=== PATIENT | female | born 1950 | race Caucasian/White ===

== ENCOUNTER → 2020-04-09 14:03 | Outpatient (BNVA) | payer MEDICARE, SELFPAY | PROVIDERS: PCP Nurse Practitioner; Visit Provider Nurse Practitioner | DX: I10 Essential (primary) hypertension (principal); E55.9 Vitamin D deficiency, unspecified; E78.2 Mixed hyperlipidemia; M19.049 Primary osteoarthritis, unspecified hand | CPT/HCPCS: 80053; 80061; 82306; 82607; 84443; 85025 ==

== ENCOUNTER → 2020-06-25 11:36 | Outpatient (BNVA) | payer MEDICARE, SELFPAY | PROVIDERS: PCP Nurse Practitioner; Visit Provider Nurse Practitioner | DX: E55.9 Vitamin D deficiency, unspecified (principal); I10 Essential (primary) hypertension; M19.049 Primary osteoarthritis, unspecified hand; B37.9 Candidiasis, unspecified; E78.2 Mixed hyperlipidemia | CPT/HCPCS: 82306 ==

== ENCOUNTER → 2020-12-17 10:52 | Outpatient (BNVA) | payer MEDICARE, MEDICAID, SELFPAY | PROVIDERS: PCP Nurse Practitioner; Visit Provider Nurse Practitioner | DX: I10 Essential (primary) hypertension (principal); M19.049 Primary osteoarthritis, unspecified hand; E78.2 Mixed hyperlipidemia; E55.9 Vitamin D deficiency, unspecified | CPT/HCPCS: 80053; 80061; 82306; 85025 ==

== ENCOUNTER → 2021-04-25 11:09 | Outpatient (BNVA) | payer MEDICARE, MEDICAID, SELFPAY | PROVIDERS: PCP Nurse Practitioner; Visit Provider Nurse Practitioner | DX: I10 Essential (primary) hypertension (principal); R32 Unspecified urinary incontinence | CPT/HCPCS: 81003 ==

== ENCOUNTER → 2021-05-13 13:25 | Outpatient (BNVA) | payer MEDICARE, MEDICAID, SELFPAY | PROVIDERS: PCP Nurse Practitioner; Visit Provider Nurse Practitioner | DX: I10 Essential (primary) hypertension (principal); Z79.899 Other long term (current) drug therapy | CPT/HCPCS: 80053; 80061; 81000 ==

== ENCOUNTER 2021-05-21 13:28 | Outpatient (CLI) | payer MEDICARE, MEDICAID, SELFPAY ==
--- NOTE | 2021-05-21 14:15 | XR_ITS ---
WS: [id number] DEXA (DUAL ENERGY X-RAY ABSORPTIOMETRY) Bone mineral density was performed using a Cellrox machine. HISTORY: Z78.0 - Asymptomatic menopausal state COMPARISON: None available. Lumbar spine BMD (L1-L4): 0.943 g/cm2 T score: -2.0 Z score: -1.4 Total hip BMD: Left: 0.950 g/cm2. T score: -0.5 Z score: 0.3 Right: 0.891 g/cm2. T score: -0.9 Z score: -0.2 10 year probability of a major osteoporotic fracture is 15%. XR/XR DEXA axial skeleton* [id number] IMPRESSION: OSTEOPENIA based upon the WHO classification for females.
== END 2021-05-21 13:29 | disposition home or self-care (01) ==
LOC: RAD 13:32
PROVIDERS: PCP Nurse Practitioner; Visit Provider Nurse Practitioner
DX: Z78.0 Asymptomatic menopausal state (principal); M85.80 Other specified disorders of bone density and structure, unspecified site
CPT/HCPCS: 77080

== ENCOUNTER 2021-07-01 14:44 | Outpatient (CLI) | payer MEDICARE, MEDICAID, SELFPAY ==
--- NOTE | 2021-07-01 14:53 | MM_ITS ---
WS: [id number] BILATERAL 3D TOMOSYNTHESIS DIGITAL SCREENING MAMMOGRAPHY WITH CAD CLINICAL INFORMATION: SCREENING COMPARISON: None. TECHNIQUE: Bilateral CC and MLO views. FINDINGS: The breasts are composed of heterogeneous fibroglandular density tissue, which can limit the detectio n of small underlying mass lesions. 10 mm asymmetric density along the posterior nipple line RIGHT br east. Nodular subareolar RIGHT breast tissue. Recommend RIGHT breast spot compression views and ultra sound for further evaluation. Punctate and lucent centered calcifications. LEFT breast is unremarkable. MM/[place] [id number] IMPRESSION: BI-RADS: 0-Incomplete: Need additional imaging evaluation FOLLOW UP: Need Additional Imaging Recommend RIGHT breast diagnostic mammography with spot compression views and u ltrasound.
== END 2021-07-01 14:45 | disposition home or self-care (01) ==
LOC: RAD 14:48
PROVIDERS: PCP Nurse Practitioner; Visit Provider Nurse Practitioner
DX: Z12.31 Encounter for screening mammogram for malignant neoplasm of breast (principal); R92.2 Inconclusive mammogram
CPT/HCPCS: 77063; 77067

== ENCOUNTER → 2021-08-25 09:59 | Outpatient (BNVA) | payer MEDICARE, MEDICAID, SELFPAY | PROVIDERS: PCP Nurse Practitioner; Visit Provider Nurse Practitioner | DX: I10 Essential (primary) hypertension (principal); M19.049 Primary osteoarthritis, unspecified hand; E78.2 Mixed hyperlipidemia; E55.9 Vitamin D deficiency, unspecified; B37.9 Candidiasis, unspecified; M25.512 Pain in left shoulder | CPT/HCPCS: 73030; 80053; 80061; 82306; 84443 ==

== ENCOUNTER → 2021-09-26 11:07 | Outpatient (BNVA) | payer MEDICARE, MEDICAID, SELFPAY | PROVIDERS: PCP Nurse Practitioner; Visit Provider Nurse Practitioner | DX: N39.46 Mixed incontinence (principal) | CPT/HCPCS: 81000 ==

== ENCOUNTER 2021-10-28 10:19 | Outpatient (CLI) | payer MEDICARE, MEDICAID, SELFPAY ==
--- NOTE | 2021-10-28 10:24 | MM_ITS ---
WS: [id number] RIGHT 3D TOMOSYNTHESIS DIGITAL MAMMOGRAPHY WITH CAD CLINICAL INFORMATION: R92.8 - Other abnormal and inconclusive findings on diagn... COMPARISON: July 01, 2021 TECHNIQUE: 3 views of the right breast were obtained. FINDINGS: The right breast is composed of heterogeneous fibroglandular density tissue, which can limit the dete ction of small underlying mass lesions. Punctate and lucent centered calcifications. Stable 10 mm ovo id nodular density along the RIGHT posterior nipple line. Stable subareolar nodular RIGHT breast tiss ue. Ultrasound described below. ULTRASOUND BREAST RIGHT TECHNIQUE: Ultrasound right breast focused area of concern. CLINICAL INFORMATION: R92.8 - Other abnormal and inconclusive findings on diagn... COMPARISON: None. FINDINGS: Ultrasound RIGHT breast 3 to 9:00 position and about the areola. Multiple dilated ducts visualized co mpatible with ductal ectasia. Dense breast tissue. A few incidental cysts at the 3:00 position measur ing 4 x 2 x 4 mm and at the 5:00 position measuring 6 x 5 x 5 mm. Additional simple cyst at the 6:00 position measuring 3 x 2 x 2.5 mm. Additional simple cyst at the 11:00 position measuring 8.5 x 4.3 x 10.0 mm No suspicious cystic or solid lesions. No lesions to target for biopsy. Recommend return to annual sc reening mammography. MM/[place] [id number] IMPRESSION: BI-RADS: 2-Benign FOLLOW UP: 1 Year Follow-up Recommend return to annual screening mammography.
== END 2021-10-28 10:20 | disposition home or self-care (01) ==
LOC: RAD 10:19
PROVIDERS: PCP Nurse Practitioner; Visit Provider Nurse Practitioner
DX: R92.8 Other abnormal and inconclusive findings on diagnostic imaging of breast (principal)
CPT/HCPCS: 76642; 77061

== ENCOUNTER → 2022-02-10 10:59 | Outpatient (BNVA) | payer MEDICARE, MEDICAID, SELFPAY | PROVIDERS: PCP Nurse Practitioner; Visit Provider Nurse Practitioner | DX: I10 Essential (primary) hypertension (principal); E55.9 Vitamin D deficiency, unspecified; M19.049 Primary osteoarthritis, unspecified hand; E78.2 Mixed hyperlipidemia; E66.9 Obesity, unspecified; F79 Unspecified intellectual disabilities | CPT/HCPCS: 80053; 80061 ==

== ENCOUNTER → 2022-02-16 10:43 | Outpatient (BNVA) | payer MEDICARE, MEDICAID, SELFPAY | PROVIDERS: PCP Nurse Practitioner; Visit Provider Nurse Practitioner | DX: R73.9 Hyperglycemia, unspecified (principal) | CPT/HCPCS: 83036 ==

== ENCOUNTER → 2022-06-08 09:42 | Outpatient (BNVA) | payer MEDICARE, MEDICAID, SELFPAY | PROVIDERS: PCP Nurse Practitioner; Visit Provider Nurse Practitioner | DX: I10 Essential (primary) hypertension (principal); E55.9 Vitamin D deficiency, unspecified; M19.049 Primary osteoarthritis, unspecified hand; E11.65 Type 2 diabetes mellitus with hyperglycemia; E78.2 Mixed hyperlipidemia; E66.9 Obesity, unspecified; F79 Unspecified intellectual disabilities | CPT/HCPCS: 80053; 80061; 82043; 82306; 83036; 84443 ==

== ENCOUNTER → 2022-08-24 09:57 | Outpatient (BNVA) | payer MEDICARE, MEDICAID, SELFPAY | PROVIDERS: PCP Nurse Practitioner; Visit Provider Nurse Practitioner | DX: E03.9 Hypothyroidism, unspecified (principal); E11.65 Type 2 diabetes mellitus with hyperglycemia; I10 Essential (primary) hypertension | CPT/HCPCS: 80053; 83036; 84443 ==

== ENCOUNTER 2022-09-02 09:19 | Outpatient (CLI) | payer MEDICARE, MEDICAID, SELFPAY ==
--- NOTE | 2022-09-02 09:27 | MM_ITS ---
WS: [id number] BILATERAL SCREENING DIGITAL TOMOSYNTHESIS MAMMOGRAM WITH CAD HISTORY: SCREENING COMPARISON: 10/28/2021, 07/01/2021 Bilateral CC and MLO views with tomosynthesis and synthetic mammography submitted. Computer aided det ection analyzed. Breast composition: The breasts are heterogeneously dense, which may obscure small masses. No suspici ous masses, microcalcifications or architectural distortion. Numerous benign bilateral calcifications . Multiple small masses scattered throughout the RIGHT breast were present on the prior examination a nd ultrasound demonstrated cysts. MM/[place] [id number] IMPRESSION: BI-RADS: 2-Benign FOLLOW UP: 1 Year Follow-up
== END 2022-09-02 09:20 | disposition home or self-care (01) ==
PROVIDERS: PCP Nurse Practitioner; Visit Provider Nurse Practitioner
DX: Z12.31 Encounter for screening mammogram for malignant neoplasm of breast (principal)
CPT/HCPCS: 77063; 77067

== ENCOUNTER → 2022-11-16 10:38 | Outpatient (BNVA) | payer MEDICARE, MEDICAID, SELFPAY | PROVIDERS: PCP Nurse Practitioner; Visit Provider Nurse Practitioner | DX: E03.9 Hypothyroidism, unspecified (principal); E11.65 Type 2 diabetes mellitus with hyperglycemia; E66.9 Obesity, unspecified; I10 Essential (primary) hypertension; M19.049 Primary osteoarthritis, unspecified hand; E78.2 Mixed hyperlipidemia; Z23 Encounter for immunization | CPT/HCPCS: 83036; 84443 ==

== ENCOUNTER → 2023-02-09 11:28 | Outpatient (BNVA) | payer MEDICARE, MEDICAID, SELFPAY | PROVIDERS: PCP Nurse Practitioner; Visit Provider Nurse Practitioner | DX: E11.65 Type 2 diabetes mellitus with hyperglycemia (principal); E66.9 Obesity, unspecified; I10 Essential (primary) hypertension; E55.9 Vitamin D deficiency, unspecified; M19.049 Primary osteoarthritis, unspecified hand; E03.9 Hypothyroidism, unspecified; E78.2 Mixed hyperlipidemia; E11.9 Type 2 diabetes mellitus without complications; Z79.899 Other long term (current) drug therapy | CPT/HCPCS: 80053; 80061; 82043; 82607; 83036; 84443 ==

== ENCOUNTER → 2023-02-24 09:50 | Outpatient (BNVA) | payer MEDICARE, MEDICAID, SELFPAY | PROVIDERS: PCP Nurse Practitioner; Visit Provider Nurse Practitioner | DX: I10 Essential (primary) hypertension (principal) | CPT/HCPCS: 80048 ==

== ENCOUNTER → 2023-08-03 11:54 | Outpatient (BNVA) | payer MEDICARE, MEDICAID, SELFPAY | PROVIDERS: PCP Nurse Practitioner; Visit Provider Nurse Practitioner | DX: E11.9 Type 2 diabetes mellitus without complications (principal); E11.65 Type 2 diabetes mellitus with hyperglycemia; H91.90 Unspecified hearing loss, unspecified ear | CPT/HCPCS: 80053; 80061; 81000; 82043; 82607; 83036 ==

== ENCOUNTER 2023-09-02 07:00 | Outpatient (CLI) | payer MEDICARE, MEDICAID, SELFPAY ==
--- NOTE | 2023-09-02 07:00 | US_ITS ---
WS: [id number] Complete ABDOMINAL ULTRASOUND HISTORY: R10.9 - Unspecified abdominal pain COMPARISON: None available. Liver: 15.7 cm in length. Normal size liver and echogenicity. No bile duct dilatation or mass. Portal Vein: Normal hepatopetal flow with monophasic waveform. Gallbladder: Well-distended gallbladder. There is at least 1 stone measuring 1.5 cm in the gallbladde r lumen. No wall thickening or pericholecystic fluid. CBD: 0.5 cm Pancreas: Normal size and echogenicity. Right kidney: 9.2 cm x 5.1 x 4.3 cm. Cortex:1.5 cm. Normal size and echogenicity. No hydronephrosis or mass. Left kidney: 10.3 cm x 5.3 cm x 5.2 cm. Cortex: 1.4 cm. Normal size and echogenicity. No hydronephrosis or mass. Spleen: 8.8 cm. Normal size and echogenicity. Aorta and IVC: Unremarkable abdominal aorta and IVC. US/US abdomen complete* [id number] Impression: 1. Cholelithiasis without acute cholecystitis. 2. No renal obstruction. 3. No bile duct dilatation.
== END 2023-09-02 07:01 | disposition home or self-care (01) ==
PROVIDERS: PCP Nurse Practitioner; Visit Provider Nurse Practitioner Family
DX: R10.9 Unspecified abdominal pain (principal); K80.20 Calculus of gallbladder without cholecystitis without obstruction
CPT/HCPCS: 73562; 76700; 80053; 82150; 83690; 85025

== ENCOUNTER 2023-09-07 13:10 | Emergency (ER) | payer MEDICARE, MEDICAID, SELFPAY ==
[2023-09-07 13:11] VITALS: BP 145/82; PULSE 75; RESP 16; TEMP 36.8; O2SAT 91
--- NOTE | 2023-09-07 13:23 | XRR_ITS ---
PROCEDURE INFORMATION: Exam: XR Left Shoulder Exam date and time: 09/07/2023 1:27 PM Age: 72 years old Clinical indication: Injury or trauma; Fall; Blunt trauma (contusions or hematomas); Shoulder; Left TECHNIQUE: Imaging protocol: Radiologic exam of the left shoulder. Views: 2 or more views. COMPARISON: CR XR shoulder LT min 2V* [id number] 08/25/2021 9:59 AM FINDINGS: Bones/joints: Comminuted displaced fracture of the proximal humerus Soft tissues: Normal. XR/XR shoulder LT min 2V* [id number] IMPRESSION: Comminuted displaced fracture proximal humerus
--- NOTE | 2023-09-07 13:27 | W.ED.EXTPRO ---
HPI - Extremity Problem General: Chief complaint: Extremity Injury, Upper Stated complaint: fall, shoulder pain Time Seen by Provider: 09/07/23 13:18 Source: patient Mode of arrival: ambulatory Limitations: no limitations History of Present Illness: 72-year-old female states that her dog pulled her over last night she states that she had landed on her left shoulder been having left shoulder pain since then. Patient denies any other injuries denies hitting her head denies any head or neck pain. She rates her shoulder pain a 6 out of 10 much worse with movement better with rest Associated symptoms: Deny chest pain, fever(s) or rash Review of Systems Const: Denies: fever(s), chills, body aches or change in appetite ENMT: Denies: throat pain or dental pain Card: Denies: chest pain Resp: Denies: dyspnea GI: Denies: abdominal pain, nausea, vomiting or diarrhea Musc: Reports: extremity pain; Denies: neck pain or back pain Skin/Breast: Denies: rash Neuro: Denies: headache(s) PFSH ED PFSH: Medical History Mental disability Colon cancer screening Cologuard negative 2021 Obesity (BMI 30-39.9) Vitamin D deficiency Arthritis of hand Osteoarthritis, hand Mixed hyperlipidemia Essential (primary) hypertension Environmental and seasonal allergies B12 deficiency Surgical History History of hysterectomy History of tonsillectomy History of tubal ligation Family History Sister Dementia Hypertension Mother Dementia Hypertension Family/Other Diabetes Brother Hypertension Father Hypertension Denies family history of Cancer Stroke Social History Smoking and tobacco/nicotine status: former use of tobacco/nicotine Second hand smoke exposure: No Alcohol intake: never Substance/Drug Use: never Adopted: No Caregiver/support person: Yes Lives independently: No Household members: family Housing: House Marital status: / Number of children: 3 service: No Current occupational status: retired Pets and animals: No Do you think of yourself as: Straight/Heterosexual Current gender identity: Female Physical Exam Const: COMMON NORMALS: no acute distress, patient oriented x3 and healthy appearing HENMT: COMMON NORMALS: normocephalic and atraumatic HEAD & SCALP: normocephalic and atraumatic Neck/C-Spine: COMMON NORMALS: full ROM and supple CERVICAL SPINE: No Cervical spine tenderness Chest: COMMONS NORMALS: normal inspection of the chest Resp: COMMON NORMALS: normal respiratory effort Cardio: COMMON NORMALS: regular rate, regular rhythm and No murmurs present (Cardio) RATE: regular rate RHYTHM: regular rhythm Extremity: NARRATIVE EXTREMITY EXAM: Tenderness over left shoulder distal pulses sensation intact Neuro: COMMON NORMALS: patient oriented x3, moves all extremities and no focal motor deficits Psych: COMMON NORMALS: mental status grossly normal, Normal thought process present and cooperative THOUGHT PROCESS: Normal thought process present Skin: COMMON NORMALS: no rashes or lesions noted and no wounds GENERAL SKIN EXAM: no rashes or lesions noted Course Vital Signs: Vital signs: Vital Signs Temperature 98.2 F 09/07/23 13:11 Pulse Rate 75 09/07/23 13:11 Respiratory Rate 16 09/07/23 13:11 Blood Pressure 145/82 09/07/23 13:11 Pulse Oximetry 91 09/07/23 13:11 Oxygen Delivery Me thod Room Air 09/07/23 13:11 MDM - Extremity (Nontraumatic) Medical Decision Making Patient presents here with proximal humerus fracture from a fall will place in a sling and get follow-up orthopedics no other injuries noted here Medical Records I reviewed the patient's medical records. XR interpretation done by ED provider, pending radiology final review ED provider radiology interpretation(s): X-ray left shoulder proximal humerus fracture Discharge Plan Discharge Patient Disposition: Home Clinical Impression: Fall Closed left humeral fracture Qualifiers: Encounter type: initial encounter Humerus Location: proximal Fracture alignment: nondisplaced Condition: Stable Prescriptions: New hydrocodone-acetaminophen 5-325 mg tablet 1 tab PO Q6H PRN (Reason: pain) Qty: 14 0RF No Action cyanocobalamin (vitamin B-12) 1,000 mcg tablet 1,000 mcg PO DAILY Hold Instructions: Vitamin B12 improved aspirin [Adult Aspirin Regimen] 81 mg tablet,delayed release (DR/EC) 81 mg PO DAILY (DME) T4528 T4528 Adult size pull-on xl See Rx Instructions .Route .MEDSUPPLY Qty: 90 12RF Rx Instructions: As directed acarbose 50 mg tablet 50 mg PO TID Qty: 270 1RF Rx Instructions: take before food atenolol 100 mg tablet 100 mg PO DAILY Qty: 90 1RF calcium carbonate-vitamin D3 [Os-Chirag 500 + D3] 500 mg-15 mcg (600 unit) tablet 1 tab PO .2 times day Qty: 180 1RF diclofenac sodium 1 % gel 2 g topical QID Qty: 100 2RF Hold Instructions: Lab level improved Rx Instructions: apply to single elbow, wrist or hand; for hand includes palm/fingers/back of hand hydrochlorothiazide 12.5 mg tablet 12.5 mg PO QAM Qty: 90 1RF levothyroxine [Levo-T] 25 mcg tablet 25 mcg PO DAILY Qty: 90 1RF lisinopril 40 mg tablet 40 mg PO DAILY Qty: 90 1RF metformin 500 mg tablet extended release 24 hr 1,000 mg PO DAILY Qty: 180 1RF rosuvastatin 10 mg tablet 10 mg PO .at bedtime Qty: 90 1RF verapamil 120 mg capsule,ext rel. pellets 24 hr 120 mg PO DAILY Qty: 90 1RF mupirocin 2 % ointment 1 applic topical BID 7 Days Qty: 22 0RF cholecalciferol (vitamin D3) 50 mcg (2,000 unit) capsule 50 mcg PO DAILY prednisone 20 mg tablet 20 mg PO BID Qty: 6 0RF nystatin 100,000 unit/gram powder 1 applic topical BID PRN (Reason: itching) Qty: 60 2RF Discharge Orders: Discharge ED (Routine); Ordered 09/07/23 Ordered By: Sb Young Referrals: Kathy Tijerina, LOGISTICS ANALYST-C [Primary Care Provider] - Nubia Ferreira MD [Physician] - 4-7 days Discharge Diet: Advance as tolerated Discharge Activity: Resume usual activity Patient Instructions: Arm Fracture in Adults (ED), Opioid Safety Coding Level of Care Code ED Deburrer Strip for Mil Falcon
[2023-09-07] MEDS: HYDROcodone-acetaminophen 5-325 mg Tablet 1 TAB PO (13:38)
[2023-09-07 14:09] VITALS: RESP 18
--- NOTE | 2023-09-07 14:11 | PC.NURSE ---
bug bugs found to be on patient. Clothing placed in plastic bags and [pt in paper scrubs. Charge notified and room closed down until cleaned.
--- NOTE | 2023-09-08 07:27 | DCPLANNER ---
Message sent to ortho for follow up on humerus fracture.
== END 2023-09-07 14:12 | disposition home or self-care (01) ==
PROVIDERS: Emergency Provider Emergency Medicine; PCP Nurse Practitioner
DX: S42.202A Unspecified fracture of upper end of left humerus, initial encounter for closed fracture (principal); Z79.82 Long term (current) use of aspirin; Z79.84 Long term (current) use of oral hypoglycemic drugs; Z87.891 Personal history of nicotine dependence; E78.2 Mixed hyperlipidemia; I10 Essential (primary) hypertension; W18.39XA Other fall on same level, initial encounter
CPT/HCPCS: 73030; 99283

== ENCOUNTER 2023-09-09 15:18 | Outpatient (CLI) | payer MEDICARE, MEDICAID, SELFPAY | END 2023-09-09 15:19 | disposition home or self-care (01) | LOC: SPT 15:19 | PROVIDERS: PCP Nurse Practitioner; Visit Provider Nurse Practitioner | DX: Z46.89 Encounter for fitting and adjustment of other specified devices (principal); S42.302D Unspecified fracture of shaft of humerus, left arm, subsequent encounter for fracture with routine healing; X58.XXXD Exposure to other specified factors, subsequent encounter | CPT/HCPCS: 23600; 97760; 99204; L3670 ==

== ENCOUNTER 2023-09-15 06:00 | Outpatient (RCR) | payer MEDICARE, MEDICAID, SELFPAY | END 2023-10-09 23:59 | disposition home or self-care (01) | LOC: APT 06:00 | PROVIDERS: PCP Nurse Practitioner; Visit Provider Nurse Practitioner | DX: M25.561 Pain in right knee (principal) | CPT/HCPCS: 97161 ==

== ENCOUNTER → 2023-10-13 09:01 | Outpatient (BNVA) | payer MEDICARE, MEDICAID, SELFPAY | PROVIDERS: PCP Nurse Practitioner; Visit Provider Nurse Practitioner | DX: S42.302A Unspecified fracture of shaft of humerus, left arm, initial encounter for closed fracture (principal); X58.XXXA Exposure to other specified factors, initial encounter | CPT/HCPCS: 73030; 99024 ==

== ENCOUNTER → 2023-11-15 10:17 | Outpatient (BNVA) | payer MEDICARE, MEDICAID, SELFPAY | PROVIDERS: PCP Nurse Practitioner; Visit Provider Nurse Practitioner | DX: S42.302D Unspecified fracture of shaft of humerus, left arm, subsequent encounter for fracture with routine healing (principal); X58.XXXA Exposure to other specified factors, initial encounter | CPT/HCPCS: 73030; 99024 ==

== ENCOUNTER → 2023-12-27 07:55 | Outpatient (BNVA) | payer MEDICARE, MEDICAID, SELFPAY | PROVIDERS: PCP Nurse Practitioner; Visit Provider Surgery | DX: R03.0 Elevated blood-pressure reading, without diagnosis of hypertension (principal); K80.20 Calculus of gallbladder without cholecystitis without obstruction; K59.00 Constipation, unspecified | CPT/HCPCS: 99204 ==

== ENCOUNTER 2024-01-04 06:30 | Day surgery (SDC) | payer MEDICARE, MEDICAID, SELFPAY ==
[2024-01-04] VITALS (10 sets, daily range): BP systolic 103–135; BP diastolic 51–78; PULSE 53–69; RESP 16–18; TEMP 36.2–36.5; O2SAT 91–100; BMI 31.8
[2024-01-04] MEDS: sodium chloride 0.9% 1,000 ML 30 ML IV (07:09)
--- NOTE | 2024-01-04 07:41 | W.PM.OPSUD ---
Surgery/Procedure H&P Update DATE OF PROCEDURE: January 04, 2024 DATE H&P PERFORMED: 12/27/23 H&P UPDATE INFORMATION: I have reviewed H&P completed within last 30 days, I have examined patient prior to procedure and No changes to prior documentation PLANNED PROCEDURE: Operation Date: 01/04/24 08:50 Proposed Procedures p Laparoscopic Cholecystectomy 14358, K80.20(Not Applicable) - Chaitanya Armenta, DO
--- NOTE | 2024-01-04 08:20 | ANES.PREANE2 ---
Pre-Anesthetic Assessment Height/Weight: Height 1.6 m Weight 81.647 kg Temp Pulse Resp BP Pulse Ox O2 Del Method 97.6 F 69 18 135/71 99 Room Air 01/04/24 06:55 01/04/24 06:55 01/04/24 06:55 01/04/24 06:55 01/04/24 06:55 01/04/24 07:00 Operation Date: 01/04/24 08:50 Proposed Procedures p Laparoscopic Cholecystectomy 28053, K80.20(Not Applicable) - Chaitanya Armenta DO Familial anesthetic complications: None Was Beta Floyd taken within 24 hours: N/A Was Clonidine taken within 24 hours: N/A Last intake: Intake Last Liquid Date 01/03/24 Last Liquid Time 18:30 Last Solid Date 01/03/24 Last Solid Time 18:30 Social No alcohol and No tobacco Airway Mallampati: Class II Dentition: false Metabolic Diabetes Mellitus, Hyperlipidemia, Morbid Obesity and Thyroid Disease Anesthetic Plan ASA status: 3 Anesthesia: General Risk of > 500 ml blood loss (7ml/kg in children): No Other Pertinent Information Family confirms she signs her own consents Medications/Allergies Home Medications Medication Instructions Recorded Confirmed Last Taken Type aspirin 81 mg tablet,delayed 81 mg PO DAILY 04/09/20 01/03/24 01/03/24 History release (Adult Aspirin Regimen) cyanocobalamin (vitamin B-12) 1,000 mcg PO DAILY 04/09/20 01/03/24 01/03/24 History 1,000 mcg tablet cholecalciferol (vitamin D3) 50 50 mcg PO DAILY 08/25/21 01/03/24 01/03/24 History mcg (2,000 unit) capsule T4528 T4528 Adult size pull-on xl #90 ea 09/26/21 12/27/23 Unknown Rx nystatin 100,000 unit/gram topical 1 applic topical BID PRN itching 01/04/23 01/03/24 Unknown Rx powder #60 grams acarbose 50 mg tablet 50 mg PO TID #270 tabs 08/09/23 01/03/24 01/03/24 Rx atenolol 100 mg tablet 100 mg PO DAILY #90 tabs 08/09/23 01/03/24 01/03/24 Rx calcium 500 mg (as 1 tab PO .2 times day #180 tabs 08/09/23 01/03/24 01/03/24 Rx carbonate)-vitamin D3 15 mcg (600 unit) tablet (Os-Chirag 500 + D3) diclofenac sodium 1 % topical gel 2 g topical QID #100 grams 08/09/23 01/03/24 Unknown Rx hydrochlorothiazide 12.5 mg tablet 12.5 mg PO QAM #90 tabs 08/09/23 01/03/24 01/03/24 Rx levothyroxine 25 mcg tablet 25 mcg PO DAILY #90 tabs 08/09/23 01/03/24 01/03/24 Rx (Levo-T) lisinopril 40 mg tablet 40 mg PO DAILY #90 tabs 08/09/23 01/03/24 01/03/24 Rx metformin 500 mg tablet,extended 1,000 mg (2 x 500 mg) PO DAILY 08/09/23 01/03/24 01/03/24 Rx release 24 hr #180 tabs rosuvastatin 10 mg tablet 10 mg PO .at bedtime #90 tabs 08/09/23 01/03/24 01/03/24 Rx verapamil 120 mg 24 hr 120 mg PO DAILY #90 caps 08/09/23 01/03/24 01/03/24 Rx capsule,extended release mupirocin 2 % topical ointment 1 applic topical BID 7 days #22 08/16/23 01/03/24 Unknown Rx grams prednisone 20 mg tablet 20 mg PO BID #6 tabs 08/20/23 01/03/24 01/03/24 Rx shoulder immobilizer #1 ea 09/09/23 12/27/23 Unknown Rx tramadol 50 mg tablet 50 mg PO Q12H PRN pain #20 tabs 11/15/23 01/03/24 Unknown Rx polyethylene glycol 3350 17 17 g PO DAILY 1 month #510 grams 12/27/23 01/03/24 01/03/24 Rx gram/dose oral powder (Miralax) Allergies Allergy/AdvReac Type Severity Reaction Status Date / Time No Known Allergies Allergy Verified 12/27/23 08:01 Current Medications Generic Name Dose Route Start Last Admin Trade Name Freq PRN Reason Stop Dose Admin Sodium Chloride 1,000 mls @ 30 mls/hr 01/03/24 13:15 01/04/24 07:09 Sodium Chloride 0.9% IV 01/04/24 13:14 30 mls/hr .Q24H GIGI Administration PFSH Anesthesia Medical History Mental disability Colon cancer screening Cologuard negative 2021 Obesity (BMI 30-39.9) Vitamin D deficiency Arthritis of hand Osteoarthritis, hand Mixed hyperlipidemia Essential (primary) hypertension Environmental and seasonal allergies B12 deficiency Surgical History History of hysterectomy History of tonsillectomy History of tubal ligation Family History Sister Dementia Hypertension Mother Dementia Hypertension Family/Other Diabetes Brother Hypertension Father Hypertension Denies family history of Cancer Stroke Social History Smoking and tobacco/nicotine status: never used tobacco/nicotine Second hand smoke exposure: No Alcohol intake: never Substance/Drug Use: never Adopted: No Caregiver/support person: Yes Lives independently: No Household members: family Housing: House Marital status: / Number of children: 3 service: No Current occupational status: retired Pets and animals: No Do you think of yourself as: Straight/Heterosexual Current gender identity: Female Data Anesthesia Cardiac Studies: No Data to Display
[2024-01-04] MEDS: ceFAZolin 2,000 mg SDV 2000 MG IVP (09:04)
[2024-01-04] MEDS: lidocaine-epi 2% PF 1:200,000 20 mL SDV XX (09:30)
--- NOTE | 2024-01-04 09:46 | P.OP_ITS ---
Operative Report Date of procedure: January 04, 2024 Surgeon: Chaitanya Armenta DO Brief History: This is a very pleasant 73-year-old female was diagnosed with symptomatic cholelithiasis. Laparoscopic cholecystectomy is indicated. The risks and benefits were explained and documented. Procedure: Preoperative diagnosis: Symptomatic cholelithiasis Postoperative diagnosis: Same Procedure performed: Laparoscopic cholecystectomy Surgeon: Dr. Chaitanya Armenta DO Estimated blood loss: 5 mL Specimens: Gallbladder to pathology Complications: None apparent Description of procedure: Patient was wheeled into the operative room and placed on the OR table in a supine position. Abdomen was inspected prepped and draped in usual sterile fashion. Time-out was performed and all present were in agreement. A 15 blade scalp was used to make a stab incision in the left upper quadrant and intra- abdominal insufflation was achieved using a Veress needle. After localizing the tissue incisions were made and a 5 millimeter trocar was placed into the umbilicus as well as 2 in the right upper quadrant. A 12 millimeter trocar was placed in the epigastrium. Gallbladder was grasped and elevated. The triangle of Calot was carefully dissected using blunt dissection and electrocautery until the triangle of Calot clearly identified. The cystic duct was clipped proximally and double clipped distally. The duct was then ligated proximally. The cystic artery was doubly clipped and ligated. The gallbladder was then removed from the liver bed using electrocautery. The gallbladder was removed from the abdomen using an Endo-Catch bag through the epigastric incision. The liver bed was inspected and no bleeding was seen. The abdomen was irrigated and suctioned. All ports removed. Skin was washed and dried. Incisions were closed with 4-0 Monocryl in a subcuticular interrupted fashion. Skin glue was applied. Patient tolerated the procedure well.
[2024-01-04] MEDS: HYDROcodone-acetaminophen 7.5-325 mg Tablet 1 TAB PO (11:10)
--- NOTE | 2024-01-04 11:15 | ANE.PACU2 ---
Inpatient post-anesthesia follow up: Airway intact: Yes Vital signs: Temperature 97.7 F Pulse Rate 59 Respiratory Rate 18 Blood Pressure 116/78 Pulse Oximetry 94 Oxygen Delivery Me thod Room Air Oxygen Flow Rate 8 Fraction of Inspir ed Oxygen Hydration adequate: Yes Nausea and vomiting: No Pain level: 1 Mental status: Baseline
[2024-01-04 19:08] LABS: Glucose Point of Care 122 mg/dL (70-110)
== END 2024-01-04 11:15 | disposition home or self-care (01) ==
PROVIDERS: PCP Nurse Practitioner; Visit Provider Surgery
PROC: 0FT44ZZ Resection of Gallbladder, Percutaneous Endoscopic Approach (ICD-10-PCS; CPT 47562; principal; 2024-01-04 08:50)
DX: K80.10 Calculus of gallbladder with chronic cholecystitis without obstruction (principal); E11.9 Type 2 diabetes mellitus without complications; E78.5 Hyperlipidemia, unspecified; E66.01 Morbid (severe) obesity due to excess calories; Z68.31 Body mass index [BMI] 31.0-31.9, adult; Z79.82 Long term (current) use of aspirin; E78.2 Mixed hyperlipidemia; I10 Essential (primary) hypertension
CPT/HCPCS: 47562; 36416; 82962; 88304; J0690; J1100; J2405; J2704; J3010; J3490; J7030

== ENCOUNTER → 2024-01-17 09:10 | Outpatient (BNVA) | payer MEDICARE, MEDICAID, SELFPAY | PROVIDERS: PCP Nurse Practitioner; Visit Provider Surgery | DX: Z90.49 Acquired absence of other specified parts of digestive tract; Z98.890 Other specified postprocedural states | CPT/HCPCS: 99024 ==

== ENCOUNTER → 2024-03-17 08:45 | Outpatient (BNVA) | payer MEDICARE, MEDICAID, SELFPAY | PROVIDERS: PCP Nurse Practitioner; Visit Provider Clinical Nurse Specialist Adult Health | DX: R35.0 Frequency of micturition (principal); L08.9 Local infection of the skin and subcutaneous tissue, unspecified | CPT/HCPCS: 81000; 87077; 87086; 87184 ==

== ENCOUNTER 2024-06-11 19:43 | Inpatient (IN) | payer MEDICARE, MEDICAID, SELFPAY ==
[2024-06-11] VITALS (9 sets, daily range): BP systolic 109–138; BP diastolic 49–76; PULSE 60–70; RESP 16; TEMP 36.6–36.8; O2SAT 97–100; BMI 32.2; BMI 30.7
[2024-06-11 20:15] LABS: Basophils # 0.1 10^3/uL (0.0-0.1); Basophils % 1.7 %; Eosinophils # 0.1 10^3/uL (0.0-0.8); Eosinophils % 1.7 %; Hematocrit 23.6 % (36-47); Lymphocytes # 0.7 10^3/uL (0.8-4.8); Lymphocytes % 17.2 %; Mean Corpuscular HGB Conc 22.9 g/dL (30-55); Mean Corpuscular Hemoglobin 14.3 pg (27-33); Mean Corpuscular Volume 62.4 fl (85-98); Mean Platelet Volume 9.4 fL (7.4-10.4); Monocytes # 0.4 10^3/uL (0.2-0.9); Monocytes % 9.2 %; Neutrophils # 2.98 10^3/uL (1.8-7.7); Neutrophils % 70.2 %; Nucleated Red Blood Cells % 0 %; Platelet Count 293 10^3/cmm (157-399); Red Blood Count 3.78 10^6/uL (3.85-5.65); Red Cell Distribution Width 20.1 % (12.1-15.1); White Blood Count 4.24 10^3/uL (3.29-11.43)
[2024-06-11 20:36] LABS: Alanine Aminotransferase 9 U/L (0-33); Albumin Level 4.2 g/dL (3.5-5.2); Alkaline Phosphatase 70 U/L (35-105); Anion Gap 18.6 (5-19); Aspartate Amino Transferase 14 U/L (0-32); Blood Urea Nitrogen 23 mg/dL (8-23); Calcium 9.5 mg/dL (8.5-10.5); Carbon Dioxide 22 mmol/L (22-29); Chloride 100 mmol/L (98-107); Creatinine Clr Calc Pharmacy 47.4088; Globulin 2.5 g/dL (1.3-4.6); Glucose 192 mg/dL (65-115); Lipase 50 U/L (13-60); Osmolality Calculated 293 mOsm/kg (285-295); Potassium 3.6 mmol/L (3.5-5.1); Sodium 137 mmol/L (136-145); Total Bilirubin 0.8 mg/dL (0.15-1.2); Total Protein 6.7 g/dL (6.6-8.7)
[2024-06-11 20:52] LABS: Bacteria Urine 4+ /hpf; Hyaline Casts Urine 28.53 /lpf; RBC Urine 21-50 /hpf (0-2); Squamous Epithelial Cell Urine 0-5 /hpf (0-5); WBC Urine 21-50 /hpf (0-5)
[2024-06-11 20:54] LABS: Add Urine Microscopic? YES; Bilirubin Urine Negative (Negative); Blood Urine Negative (Negative); Glucose Urine UA Negative (Normal); Ketones Urine Negative (Negative); Leukocyte Esterase Urine 1+ (Negative); Nitrate Urine Positive (Negative); Protein Urine Negative (Negative); Specific Gravity, Urine 1.013 (1.005-1.030); Urine Appearance Cloudy (CLEAR); Urine Color Yellow (Yellow)
--- NOTE | 2024-06-11 20:58 | CTR_ITS ---
PROCEDURE INFORMATION: Exam: CT Abdomen And Pelvis With Contrast Exam date and time: 06/11/2024 9:15 PM Age: 73 years old Clinical indication: Abdominal pain; Localized; Right lower quadrant (rlq); Prior surgery; Surgery date: 6+ months; Surgery type: Gb; Additional info: Rlq pain TECHNIQUE: Imaging protocol: Computed tomography of the abdomen and pelvis with contrast. Radiation optimization: All CT scans at this facility use at least one of these dose optimization techniques: automated exposure control; mA and/or kV adjustment per patient size (includes targeted exams where dose is matched to clinical indication); or iterative reconstruction. Contrast material: OMNI 350; Contrast volume: 100 ml; Contrast route: INTRAVENOUS (IV); COMPARISON: US abdomen complete* [id number] 09/02/2023 6:58 AM RADIATION DOSE METRICS: Total DLP (mGy-cm): 672.36 FINDINGS: Limitations: Suboptimal image quality due to motion artifact. Lungs: Mild bibasilar atelectasis. Heart: Mild cardiomegaly. Liver: Normal. No mass. Gallbladder and biliary ducts: Status post cholecystectomy. Pancreas: Normal. No ductal dilation. Spleen: Normal. No splenomegaly. Adrenal glands: 1.6 cm left adrenal nodule. Kidneys and ureters: Normal. No hydronephrosis. Stomach and bowel: Few scattered colonic diverticula are seen without evidence of acute diverticulitis. Oloe-oe-cfyqhxlg colonic stool. No evidence of bowel obstruction. Moderate sliding hiatal hernia containing about half the stomach. Appendix: No evidence of appendicitis. Intraperitoneal space: Unremarkable. No free air. No significant fluid collection. Vasculature: Mild atherosclerotic aortoiliac calcifications. No abdominal aortic aneurysm. Lymph nodes: Unremarkable. No enlarged lymph nodes. Urinary bladder: Unremarkable as visualized. Reproductive: Status post hysterectomy. No suspicious adnexal mass. Bones/joints: Grade 1 anterolisthesis of L4 on L5. Multilevel lumbar spondylosis. Diffuse osseous demineralization. Soft tissues: Portions of the small bowel loop protrudes into the right inguinal canal opening without obvious hernia. CT/CT abdomen pelvis w con* [id number] IMPRESSION: 1. No acute findings in the abdomen/pelvis. 2. Annd-mm-hbhvjtac colonic stool can be seen with constipation. 3. Mild protrusion of the small bowel loop in the right inguinal canal opening without obvious hernia. 4. Moderate hiatal hernia. 5. Indeterminate 1.6 cm left adrenal nodule. In a patient with no cancer history, consider 12 month follow-up adrenal CT. (Reference: Jeovany) REFERENCES: Jeovany QUINTANILLA et al. Management of Incidental Adrenal Masses: A White Paper of the ACR Incidental Findings Committee. J Am Edilia Radiol. 2017;14(8):5374-1152.
--- NOTE | 2024-06-11 21:03 | ED_ITS ---
HPI - Abdominal Pain 2 General: Chief Complaint: Abdominal Pain Stated Complaint: dizzy, sob, abd pain Time Seen by Provider: 06/11/24 20:19 History of Present Illness: 73-year-old female 1 to 2-week history o f right lower quadrant pain. Pain has been on and off. Son notes that she had her gallbladder out in December last year. She has also been short of breath, worsening with exertion. She gets dizzy at times when getting up. No history of black stools. No diarrhea or vomiting. No fever. No chest pain. No cough or sputum production. Related Data Home Medications ?Medication ?Instructions ?Recorded ?Confirmed aspirin 81 mg tablet,delayed 81 mg PO DAILY 04/09/20 0 03/17/24 release (Adult Aspirin Regimen) cholecalciferol (vitamin D3) 50 50 mcg PO DAILY 03/17/24 mcg (2,000 unit) capsule Previous Rx's ?Medication ?Instructions ?Recorded T4528 T4528 Adult size pull-on xl #90 ea 09/26/21 nystatin 100,000 unit/gram topical 1 applic topical BI D PRN itching 01/04/23 powder #60 grams diclofenac sodium 1 % topical gel 2 g topical QID #100 grams 08/09/23 mupirocin 2 % topical ointment 1 applic topical BID 7 days #22 08/16/23 grams shoulder immobilizer #1 ea 09/09/23 polyethylene glycol 3350 17 17 g PO DAILY 1 month #510 grams 12/27/23 gram/dose oral powder (Miralax) acarbose 50 mg tablet 50 mg PO TID #270 tabs 02/16 atenolol 100 mg tablet 100 mg PO DAILY #90 tabs 11/02 calcium 500 mg (as 1 tab PO .2 times day #180 t abs 02/17/24 carbonate)-vitamin D3 15 mcg (600 unit) tablet (Os-Chirag 500 + D3) hydrochlorothiazide 12.5 mg tablet 12.5 mg PO QAM #90 tabs 02/17/24 levothyroxine 25 mcg tablet 25 mcg PO DAILY #90 tabs 0 02/17/24 (Levo-T) lisinopril 30 mg tablet 30 mg PO DAILY #90 tabs 11/02 metformin 500 mg tablet,extended 1,000 mg (2 x 500 mg) PO DAILY 02/17/24 release 24 hr #180 tabs rosuvastatin 10 mg tablet 10 mg PO .at bedtime #90 tab s 02/17/24 verapamil 120 mg 24 hr 120 mg PO DAILY #90 caps 11/02 capsule,extended release sulfamethoxazole 800 1 tab PO Q12H #14 tabs 03/17 mg-trimethoprim 160 mg tablet (Bactrim DS) Allergies Allergy/AdvReac Type Severity Reaction Status Date / Time No Known Allergies Allergy Verified 02/17/24 16:03 PFSH ED 2 PFSH: Medical History Mental disability Colon cancer screening Cologuard negative 2021 Obesity (BMI 30-39.9) Vitamin D deficiency Arthritis of hand Osteoarthritis, hand Mixed hyperlipidemia Essential (primary) hypertension Environmental and seasonal allergies B12 deficiency Surgical History Hx laparoscopic cholecystectomy 01/04/24 Dr Armenta History of hysterectomy History of tonsillectomy History of tubal ligation Family History Sister Dementia Hypertension Mother Dementia Hypertension Family/Other Diabetes Brother Hypertension Father Hypertension Denies family history of Cancer Stroke Social History Smoking and tobacco/nicotine status: former use of tobacco/nicotine Second hand smoke exposure: No Alcohol intake: never Substance/Drug Use: never Adopted: No Caregiver/support person: Yes Lives independently: No Household members: family Housing: House Marital status: / Number of children: 3 service: No Current occupational status: retired Pets and animals: No Do you think of yourself as: Straight/Heterosexual Current gender identity: Female Physical Exam 2 Const: COMMON NORMALS: no acute distress GENERAL APPEARANCE: cooperative; not ill appearing and not frail appearing HENMT: COMMON NORMALS: normocephalic, atraumatic and Normal external nose present HEAD & SCALP: normocephalic and atraumatic FACE & SINUS: normal facial exam and face symmetric NOSE: Normal external nose present Eye: COMMON NORMALS: Equal, round and reactive pupils present and EOMs intact bilaterally PUPIL: Yes Equal, round and reactive pupils present Neck/C-Spine: GENERAL: Yes trachea midline Chest: CHEST: Yes Symmetrical chest wall rise Resp: COMMON NORMALS: normal respiratory effort, No retractions, No use of accessory muscles and clear to auscultation bilaterally AUSCULTATION: clear to auscultation bilaterally Cardio: COMMON NORMALS: regular rate and regular rhythm RATE: regular rate RHYTHM: regular rhythm GI: COMMON NORMALS: Normal to inspection, nondistended, normoactive bowel sounds present and Soft to palpation PALPATION: Yes Soft to palpation and Yes Tenderness to palpation present (GI) Details: RLQ Extremity: COMMON NORMALS: no pedal edema Neuro: KEENAN COMA SCALE: document GCS findings [place] coma scale eye opening: Spontaneous [place] coma scale verbal response: Orientated [place] coma scale motor response: Obey commands [place] coma scale total score: 15 S ENSORY EXAM: Yes extremities (intact) Psych: COMMON NORMALS: speech normal SPEECH: Yes normal speech Skin: GENERAL SKIN EXAM: pallor Course 2 Vital Signs: Vital signs: Vital Signs Temperature 98.3 F 06/11/24 22:34 Pulse Rate 62 06/11/24 22:41 Respiratory Rate 16 06/11/24 22:41 Blood Pressure 109/64 06/11/24 22:41 Pulse Oximetry 98 06/11/24 22:41 Oxygen Delivery Me thod Room Air 06/11/24 19:50 MDM - Abdominal Pain Medical Decision Making Vitals are stable. However, hemoglobin is 5.4. Creatinine is 1.1. CT is pending. Transfusing 2 units packed cells. Crossmatching. CT is nonacute. Hemoglobin is 5.4, microcytic. She is crossmatched for 2 units, and will get transfused. Spoke with hospitalist. Will observe, for further workup. Lab Data 06/11/24 20:09 06/11/24 20:09 Labs/Radiology: Radiology Impressions Abdomen/Pelvis CT 06/11/24 20:58 IMPRESSION: 1. No acute findings in the abdomen/pelvis. 2. [id number] colonic stool can be seen with constipation. 3. Mild protrusion of the small bowel loop in the right inguinal canal opening without obvious hernia. 4. Moderate hiatal hernia. 5. Indeterminate 1.6 cm left adrenal nodule. In a patient with no cancer history, consider 12 month follow-up adrenal CT. (Reference: Jeovany) REFERENCES: Jeovany QUINTANILLA, et al. Management of Incidental Adrenal Masses: A White Paper of the ACR Incidental Findings Committee. J Am Edilia Radiol. 2017;14(8):0392-3328. Laboratory Results WBC 4.24 10^3/uL (3.29-11.43) 06/11/24 20:09 RBC 3.78 10^6/uL (3.85-5.65) L 06/11/24 20:09 Hgb 5.40 g/dL (11.27-16.99) L* 06/11/24 20:09 Hct 23.6 % (36-47) L 06/11/24 20:09 MCV 62.4 fl (85-98) L 06/11/24 20:09 MCH 14.3 pg (27-33) L 06/11/24 20:09 MCHC 22.9 g/dL (30-55) L 06/11/24 20:09 RDW 20.1 % (12.1-15.1) H 06/11/24 20:09 Plt Count 293 10^3/cmm (157-399) 06/11/24 20:09 MPV 9.4 fL (7.4-10.4) 06/11/24 20:09 Neut % (Auto) 70.2 % 06/11/24 20:09 Lymph % (Auto) 17.2 % 06/11/24 20:09 Pine % (Auto) 9.2 % 06/11/24 20:09 Eos % (Auto) 1.7 % 06/11/24 20:09 Baso % (Auto) 1.7 % 06/11/24 20:09 Neut # (Auto) 2.98 10^3/uL (1.8-7.7) 06/11/24 20:09 Lymph # (Auto) 0.7 10^3/uL (0.8-4.8) L 06/11/24 20:09 Pine # (Auto) 0.4 10^3/uL (0.2-0.9) 06/11/24 20:09 Eos # (Auto) 0.1 10^3/uL (0.0-0.8) 06/11/24 20:09 Baso # (Auto) 0.1 10^3/uL (0.0-0.1) 06/11/24 20:09 Nucleated RBC % (auto) 0 % 06/11/24 20:09 Nucleated RBCs # 0.0 /100WBC 06/11/24 20:09 Sodium 137 mmol/L (136-145) 06/11/24 20:09 Potassium 3.6 mmol/L (3.5-5.1) 06/11/24 20:09 Chloride 100 mmol/L (98-107) 06/11/24 20:09 Carbon Dioxide 22 mmol/L (22-29) 06/11/24 20:09 Anion Gap 18.6 (5-19) 06/11/24 20:09 BUN 23 mg/dL (8-23) 06/11/24 20:09 Creatinine 1.1 mg/dL (0.5-0.9) H 06/11/24 20:09 GFR Calculation Not Reportable 06/11/24 20:09 Glucose 192 mg/dL (65-115) H 06/11/24 20:09 Calculated Osmolality 293 mOsm/kg (285-295) 06/11/24 20:09 Calcium 9.5 mg/dL (8.5-10.5) 06/11/24 20:09 Total Bilirubin 0.8 mg/dL (0.15-1.2) 06/11/24 20:09 AST 14 U/L (0-32) 06/11/24 20:09 ALT 9 U/L (0-33) 06/11/24 20:09 Alkaline Phosphatase 70 U/L (35-105) 06/11/24 20:09 Total Protein 6.7 g/dL (6.6-8.7) 06/11/24 20:09 Albumin 4.2 g/dL (3.5-5.2) 06/11/24 20: Globulin 2.5 g/dL (1.3-4.6) 06/11/24 20:09 Lipase 50 U/L (13-60) 06/11/24 20: Urine Color Yellow (Yellow) 06/11/24: Urine Appearance Cloudy (CLEAR) A 06/11/24: Urine pH 6.0 (5-7) 06/11/24 20: Ur Specific [place] 1.013 (1.005-1.030) 06/11/24: Urine Protein Negative (Negative) 06/11/24 20:44 Urine Glucose (UA) Negative (Normal) 06/11/24 20:44 Urine Ketones Negative (Negative) 06/11/24 20:44 Urine Blood Negative (Negative) 06/11/24 20:44 Urine Nitrate Positive (Negative) A 06/11/24 20:44 Urine Bilirubin Negative (Negative) 06/11/24 20:44 Urine Urobilinogen 1.0 mg/dL (Negative) 06/11/24 20:44 Ur Leukocyte Esterase 1+ (Negative) A 06/11/24 20:44 Urine RBC 21-50 /hpf (0-2) H 06/11/24 20:44 Urine WBC 21-50 /hpf (0-5) H 06/11/24 20:44 Ur Squamous Epith Cells 0-5 /hpf (0-5) 06/11/24 20:44 Amorphous Sediment Not Reportable 06/11/24 20:44 Urine Bacteria 4+ /hpf (NONE) H 06/11/24 20:44 Hyaline Casts 28.53 /lpf 06/11/24 20:44 Blood Type O Negative 06/11/24 20:50 Rho(D) Type Rh negative 06/11/24 20:50 Antibody Screen Negative 06/11/24 20:50 Crossmatch See Detail 06/11/24 20:50 All radiology interpretation(s) finalized by discharge Discharge Plan Discharge Patient Disposition: Admitted As Inpatient Admit Provider: Grant Manriquez Clinical Impression: Severe anemia Condition: Fair Coding Level of Care Code 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
[2024-06-11 21:07] LABS: Add Urine Culture? Yes; UA Slide Review UA Slide Review Perf
[2024-06-11] MEDS: iohexol 350 mg/mL 500 mL Btl (per mL) IV (21:19)
[2024-06-11] MEDS: acetaminophen 325 mg Tablet 650 MG PO (21:27)
[2024-06-11] MEDS: diphenhydrAMINE 50 mg/mL SDV 1mL 12.5 MG IVP (21:27)
--- NOTE | 2024-06-11 23:16 | PM.HP ---
Providers/Chief Complaint Admitting Physician: Grant Manriquez MD Primary Care Provider: Kathy Tijerina, [employer] Chief Complaint: dizzy, sob, abd pain History of Present Illness German Brown is a 73 year old female who has been having right lower quadrant abdominal pain for about a week. She denies nausea vomiting diarrhea constipation or fevers. She has been dizzy and dyspneic on exertion. The patient has some constipation but no melena. Her last colonoscopy was greater than 8 years ago in [place]. MCV 62.4 and hemoglobin down to 5 from 18 August 2023. She has a mild UTI by urine sample and some microscopic blood but denies blood in her urine. She denies blood from the vagina bleeding from the mouth or significant bruising. Patient is accompanied by her son Rob who moved here 4 years ago. Patient wants full code. 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 She has had some tingling in her right foot just the last 1 week left side normal psych no complaints Medications/Allergies Home Medications ?Medication ?Instructions ?Recorded ?Confirmed ?Last Taken ?Type aspirin 81 mg tablet,delayed 81 mg PO DAILY 04/09/20 03/17/24 01/03/24 History release (Adult Aspirin Regimen) cholecalciferol (vitamin D3) 50 50 mcg PO DAILY 08/25/21 03/17/24 01/03/24 History mcg (2,000 unit) capsule T4528 T4528 Adult size pull-on xl #90 ea 09/26/21 03/17/24 Unknown Rx nystatin 100,000 unit/gram topical 1 applic topical BID PRN itching 01/04/23 03/17/24 Unknown Rx powder #60 grams diclofenac sodium 1 % topical gel 2 g topical QID #100 grams 08/09/23 03/17/24 Unknown Rx mupirocin 2 % topical ointment 1 applic topical BID 7 days #22 08/16/23 03/17/24 Unknown Rx grams shoulder immobilizer #1 ea 09/09/23 03/17/24 Unknown Rx polyethylene glycol 3350 17 17 g PO DAILY 1 month #510 grams 12/27/23 03/17/24 01/03/24 Rx gram/dose oral powder (Miralax) acarbose 50 mg tablet 50 mg PO TID #270 tabs 02/17/24 03/17/24 Unknown Rx atenolol 100 mg tablet 100 mg PO DAILY #90 tabs 02/17/24 03/17/24 Unknown Rx calcium 500 mg (as 1 tab PO .2 times day #180 tabs 02/17/24 03/17/24 Unknown Rx carbonate)-vitamin D3 15 mcg (600 unit) tablet (Os-Chirag 500 + D3) hydrochlorothiazide 12.5 mg tablet 12.5 mg PO QAM #90 tabs 02/17/24 03/17/24 Unknown Rx levothyroxine 25 mcg tablet 25 mcg PO DAILY #90 tabs 02/17/24 03/17/24 Unknown Rx (Levo-T) lisinopril 30 mg tablet 30 mg PO DAILY #90 tabs 02/17/24 03/17/24 Unknown Rx metformin 500 mg tablet,extended 1,000 mg (2 x 500 mg) PO DAILY 02/17/24 03/17/24 Unknown Rx release 24 hr #180 tabs rosuvastatin 10 mg tablet 10 mg PO .at bedtime #90 tabs 02/17/24 03/17/24 Unknown Rx verapamil 120 mg 24 hr 120 mg PO DAILY #90 caps 02/17/24 03/17/24 Unknown Rx capsule,extended release sulfamethoxazole 800 1 tab PO Q12H #14 tabs 03/17/24 03/17/24 Unknown Rx mg-trimethoprim 160 mg tablet (Bactrim DS) Allergies Allergy/AdvReac Type Severity Reaction Status Date / Time No Known Allergies Allergy Verified 02/17/24 16:03 PFSH Acute PFSH: Medical History Mental disability Colon cancer screening Cologuard negative 2021 Obesity (BMI 30-39.9) Vitamin D deficiency Arthritis of hand Osteoarthritis, hand Mixed hyperlipidemia Essential (primary) hypertension Environmental and seasonal allergies B12 deficiency Surgical History Hx laparoscopic cholecystectomy 01/04/24 Dr Armenta History of hysterectomy History of tonsillectomy History of tubal ligation Family History Sister Dementia Hypertension Mother Dementia Hypertension Family/Other Diabetes Brother Hypertension Father Hypertension Denies family history of Cancer Stroke Social History (Updated 06/11/24 @ 23:26 by Grant Manriquez MD) Smoking and tobacco/nicotine status: former use of tobacco/nicotine Second hand smoke exposure: No Alcohol intake: never Substance/Drug Use: never Additional social history: Patient wants full code as discussed today 06/11/2024 with patient and son Nirav. 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 Pets and animals: No Do you think of yourself as: Straight/Heterosexual Current gender identity: Female Vitals/I&O/Wt Last Vital Signs Temp 98.3 F 06/11/24 22:34 Pulse 62 06/11/24 22:41 Resp 16 06/11/24 22:41 BP 109/64 06/11/24 22:41 Pulse Ox 98 06/11/24 22:41 O2 Del Method Room Air 06/11/24 19:50 06/11/24 06/11/24 06/12/24 14:59 22:59 06:59 Intake Total 0 / 0 Balance 0 / 0 Weight last 48 hrs Weight 85.275 kg Physical Exam Narrative: General Well-developed well-nourished overweight female in no acute cardiopulmonary distress CV regular rate and rhythm Lungs clear to auscultation bilaterally Abdomen positive bowel sounds soft nontender I cannot appreciate any mass in the abdomen. Abdominal muscles soft so good exam but she is obese. Calves no tenderness cords pretrip edema Both compression stockings were removed and I do not see any sores or deformities of the feet. Skin is warm and dry Data 06/11/24 20:09 06/11/24 20:09 A&P Assessment and plan (1) Severe anemia: Patient was ordered for 2 units of packed red cells in the emergency department. I have added iron studies to her pretransfusion blood. Anticipate that she will need an iron infusion. Suspected colonic blood loss and she will need an outpatient colonoscopy. I have started Protonix but I doubt this is upper GI bleed she is counseled to discontinue the aspirin 81 mg coated aspirin due to the bleeding (2) UTI (urinary tract infection): Treated with Rocephin. Follow-up for hematuria after UTI resolved. If present will need renal imaging and potentially cystoscopy (3) Constipation: Start stool softeners (4) Diabetes mellitus with hyperglycemia: Start sliding scale continue metformin renal function is fine (5) Obesity (BMI 30-39.9): Start 1500-calorie ADA diet PDMP PDMP Reviewed: Not Reviewed Attestations Medical Necessity Statement*: Patient is admitted to the hospital for blood transfusion. May potentially discharge home after 1 midnight if responding well Coding Level of Care Code 12797 Diagnoses Severe anemia D64.9 UTI (urinary tract infection) N39.0 Constipation K59.00 Type 2 diabetes mellitus with hyperglycemia, without long-term current use of insulin E11.65 Diabetes mellitus type: type 2 Diabetes mellitus custodial insulin use: without intermodal customer service use Obesity (BMI 30-39.9) E66.9 Time Spent (min) 55
[2024-06-11 23:37] LABS: Iron 15 ug/dL (37-145); Percent Saturation 3.1 % (20-50); Total Iron Binding Capacity 478 mcg/dl; Unsaturated Iron Binding 463 ug/dL (112-347)
[2024-06-12] VITALS (13 sets, daily range): BP systolic 119–147; BP diastolic 57–79; PULSE 60–94; RESP 16–18; TEMP 36.3–36.8; O2SAT 93–97
[2024-06-12] MEDS: sulfamethoxazole-trimeth DS 160-800 mg Tablet 1 TAB PO ×2 (00:10→11:32)
[2024-06-12] MEDS: atorvastatin 40 mg Tablet 20 MG PO ×2 (00:11→20:56)
[2024-06-12] MEDS: pantoprazole DR 40 mg Tablet PO ×2 (00:11→08:32)
[2024-06-12] MEDS: cefTRIAXone 1,000 mg SDV 1000 MG IVP (00:11)
[2024-06-12] MEDS: levothyroxine 25 mcg Tablet PO (06:09)
[2024-06-12] MEDS: hydroCHLOROthiazide 25 mg Tablet 12.5 MG PO (06:09)
[2024-06-12 06:39] LABS: Glucose Point of Care 112 mg/dL (70-110)
[2024-06-12 06:52] LABS: Basophils # 0.1 10^3/uL (0.0-0.1); Basophils % 1.4 %; Eosinophils # 0.2 10^3/uL (0.0-0.8); Eosinophils % 3.8 %; Hematocrit 30.2 % (36-47); Lymphocytes # 0.8 10^3/uL (0.8-4.8); Lymphocytes % 19.7 %; Mean Corpuscular HGB Conc 27.2 g/dL (30-55); Mean Corpuscular Volume 66.4 fl (85-98); Mean Platelet Volume 9.4 fL (7.4-10.4); Monocytes # 0.5 10^3/uL (0.2-0.9); Monocytes % 12.2 %; Neutrophils # 2.67 10^3/uL (1.8-7.7); Neutrophils % 62.7 %; Nucleated Red Blood Cells % 0 %; Platelet Count 231 10^3/cmm (157-399); Red Blood Count 4.55 10^6/uL (3.85-5.65); Red Cell Distribution Width 25.4 % (12.1-15.1); White Blood Count 4.26 10^3/uL (3.29-11.43)
[2024-06-12 07:16] LABS: Anion Gap 14.6 (5-19); Blood Urea Nitrogen 18 mg/dL (8-23); Calcium 9.2 mg/dL (8.5-10.5); Carbon Dioxide 25 mmol/L (22-29); Chloride 102 mmol/L (98-107); Glucose 87 mg/dL (65-115); Osmolality Calculated 287 mOsm/kg (285-295); Potassium 3.6 mmol/L (3.5-5.1); Sodium 138 mmol/L (136-145); Thyroid Stimulating Hormone 2.35 uIU/mL (0.27-4.20)
[2024-06-12] MEDS: polyethylene glycol 3350 Pkt 17 gm PO (08:32)
[2024-06-12] MEDS: metformin XR 500 MG Tablet 1000 MG PO (08:32)
[2024-06-12] MEDS: atenolol 50 mg Tablet 100 MG PO (08:32)
[2024-06-12] MEDS: diclofenac 1% Topical Gel 100 gm 1 APPLIC TOPICAL ×2 (08:33→11:33)
--- NOTE | 2024-06-12 08:47 | PC.PHAR ---
Pt agrees to taking several medications before guardian in the room woke up and said she is altered and does not know her medications. She did say she took her medications last on Wednesday. Verified with [facility] with last fill dates and day supply. Metformin 500 er 2 tablets bid-is the only med pt should be low or out of.
[2024-06-12 11:07] LABS: Glucose Point of Care 139 mg/dL (70-110)
--- NOTE | 2024-06-12 12:38 | P.PN_ITS ---
Subjective 2 Subjective: Seen today. Hemoglobin 8.2 this morning. She is status post 2 units packed RBC. RDW 25, MCV 66. States she had her last colonoscopy 5 to 6 years ago in [place]. Symptomatically feeling better. Was able to walk to the bathroom without experiencing further dizziness as per patient. Son at bedside Denies vaginal bleeding, hematochezia, hemoptysis, hematuria. Vitals/I&O/Wt Last Vital Signs Temp 98.2 F 06/12/24 11:27 Pulse 66 06/12/24 11:27 Resp 17 06/12/24 11:27 BP 126/78 06/12/24 11:27 Pulse Ox 96 06/12/24 11:27 O2 Del Method Room Air 06/12/24 11:27 06/11/24 06/12/24 06/12/24 22:59 06:59 14:59 Intake Total 0 / 0 840 / 840 720 / 720 Balance 0 / 0 840 / 840 720 / 720 Weight last 48 hrs Weight 80.796 kg Weight 81.102 kg Weight 85.275 kg Physical Exam 2 Narrative: General Well-developed well-nourished overweight female in no acute cardiopulmonary distress CV regular rate and rhythm Lungs clear to auscultation bilaterally Abdomen positive bowel sounds soft nontender No edema bilateral lower extremities. Patient wearing compression stockings. Data 06/12/24 06:44 06/12/24 06:44 A&P Assessment and plan (1) Severe anemia: Patient was ordered for 2 units of packed red cells in the emergency department. I have added iron studies to her pretransfusion blood. Anticipate that she will need an iron infusion. Suspected colonic blood loss and she will need an outpatient colonoscopy. I have started Protonix but I doubt this is upper GI bleed she is counseled to discontinue the aspirin 81 mg coated aspirin due to the bleeding (2) UTI (urinary tract infection): Treated with Rocephin. Follow-up for hematuria after UTI resolved. If present will need renal imaging and potentially cystoscopy (3) Constipation: Start stool softeners (4) Diabetes mellitus with hyperglycemia: Start sliding scale continue metformin renal function is fine (5) Obesity (BMI 30-39.9): Start 1500-calorie ADA diet (6) Symptomatic anemia: (7) Iron deficiency anemia: Plan 06/12/2024 ?Hemoglobin 8.2 patient is status post 2 units. MCV 66.4, RDW 25.4. Most likely patient has severe iron deficiency anemia however etiology is unknown. ? I would recommend colonoscopy and EGD for complete workup ? CT abdomen pelvis does not show any acute pathology that explain her anemia. ? No evidence of any gross bleed ? Denies hematuria, vaginal bleed, hematochezia, hemoptysis ? Check reticulocyte count, haptoglobin, LDH, peripheral smear ? Will need hematology consultation at discharge ? Continue to monitor CBC every 12 hours ? Patient did have a colonoscopy 5 or 6 years ago at an outside facility. Will attempt to get records however patient tells me that there was nothing significant on results. ? Son is present at bedside to supplement history. ? I will order IV iron IV sucrose 200 x 3 doses total. First dose today ? Consult general surgery for potential EGD colonoscopy in AM. ? Subjectively patient's fatigue and shortness of breath has improved after blood transfusion which would support a diagnosis of severe iron deficiency anemia/symptomatic anemia. PDMP PDMP Reviewed: Not Reviewed Attestations 2 Medical Necessity Statement*: Requires inpatient stay for EGD colonoscopy as workup of severe iron deficiency anemia requiring IV iron inpatient as percent saturation is 3.1%. Requires further monitoring in hospital to ensure hemoglobin stability prior to discharge. Diagnoses Severe anemia D64.9 UTI (urinary tract infection) N39.0 Constipation K59.00 Type 2 diabetes mellitus with hyperglycemia, without long-term current use of insulin E11.65 Diabetes mellitus dashboard developer insulin use: without [facility] use Diabetes mellitus type: type 2 Obesity (BMI 30-39.9) E66.9 Symptomatic anemia D64.9 Iron deficiency anemia D50.9
[2024-06-12 12:47] LABS: Lactate Dehydrogenase 196 U/L (135-214)
[2024-06-12 12:49] LABS: Reticulocyte % 0.5 % (0.5-2.0)
[2024-06-12 13:01] LABS: LAB Peripheral Smear Sent for Review
--- NOTE | 2024-06-12 14:20 | PM.CONSULT ---
Providers/Reason For Consult Consulting Physician/Specialty*: General Surgery Reason for Consult*: Iron deficiency anemia Attending Physician: Eve Gallegos MD Primary Care Provider: TRUNG Pacheco History of Present Illness History of Present Illness German Brown is a 73 year old female Who presented to the hospital with severe iron deficiency anemia. I have been consulted for EGD and colonoscopy as part of the workup. Denies significant blood in the stool, endorses some abdominal pain especially right lower quadrant. Last colonoscopy about 5 years ago. Does not remember if she ever had an upper endoscopy. Medications/Allergies Home Medications ?Medication ?Instructions ?Recorded ?Confirmed ?Last Taken ?Type aspirin 81 mg tablet,delayed 81 mg PO DAILY 04/09/20 06/12/24 06/11/24 History release (Adult Aspirin Regimen) cholecalciferol (vitamin D3) 50 50 mcg PO DAILY 08/25/21 06/12/24 06/11/24 History mcg (2,000 unit) capsule T4528 T4528 Adult size pull-on xl #90 ea 09/26/21 06/12/24 Unknown Rx shoulder immobilizer #1 ea 09/09/23 06/12/24 Unknown Rx acarbose 50 mg tablet 50 mg PO TID #270 tabs 02/17/24 06/12/24 Unknown Rx atenolol 100 mg tablet 100 mg PO DAILY #90 tabs 02/17/24 06/12/24 06/11/24 Rx calcium 500 mg (as 1 tab PO .2 times day #180 tabs 02/17/24 06/12/24 06/11/24 Rx carbonate)-vitamin D3 15 mcg (600 unit) tablet (Os-Chirag 500 + D3) hydrochlorothiazide 12.5 mg tablet 12.5 mg PO QAM #90 tabs 02/17/24 06/12/24 06/11/24 Rx levothyroxine 25 mcg tablet 25 mcg PO DAILY #90 tabs 02/17/24 06/12/24 06/11/24 Rx (Levo-T) lisinopril 30 mg tablet 30 mg PO DAILY #90 tabs 02/17/24 06/12/24 06/11/24 Rx metformin 500 mg tablet,extended 1,000 mg (2 x 500 mg) PO DAILY 02/17/24 06/12/24 Unknown Rx release 24 hr #180 tabs rosuvastatin 10 mg tablet 10 mg PO .at bedtime #90 tabs 02/17/24 06/12/24 06/11/24 Rx verapamil 120 mg 24 hr 120 mg PO DAILY #90 caps 02/17/24 06/12/24 06/11/24 Rx capsule,extended release Allergies Allergy/AdvReac Type Severity Reaction Status Date / Time No Known Allergies Allergy Verified 02/17/24 16:03 Current Medications Generic Name Dose Route Start Last Admin Trade Name [place] PRN Reason Stop Dose Admin Atenolol 100 mg 06/12/24 09:00 06/12/24 08:32 Atenolol 50 Mg Tablet PO 100 mg DAILY GIGI Administration Atorvastatin Calcium 20 mg 06/11/24 23:45 06/12/24 00:11 Atorvastatin 40 Mg Tablet PO 20 mg BEDTIME GIGI Administration Ceftriaxone Sodium 1,000 mg 06/11/24 23:30 06/12/24 00:11 Ceftriaxone 1,000 Mg Sdv IVP 1,000 mg Q24H GIGI Administration Protocol Diclofenac Sodium 1 applic 06/12/24 09:00 06/12/24 11:33 Diclofenac 1% Topical Gel 100 Gm TOPICAL 1 applic QID GIGI Administration Hydrochlorothiazide 12.5 mg 06/12/24 06:00 06/12/24 06:09 Hydrochlorothiazide 25 Mg Tablet PO 12.5 mg QAM GIGI Administration Insulin Human Lispro 0 unit 06/12/24 08:00 06/12/24 11:23 Insulin Lispro 100 Unit/1 Ml SUBCUT Not Given WM&BEDTIME GIGI Protocol Levothyroxine Sodium 25 mcg 06/12/24 06:00 06/12/24 06:09 Levothyroxine 25 Mcg Tablet PO 25 mcg DAILY@0600 GIGI Administration Metformin HCl 1,000 mg 06/12/24 09:00 06/12/24 08:32 Metformin Xr 500 Mg Tablet PO 1,000 mg DAILY GIGI Administration Pantoprazole Sodium 40 mg 06/11/24 23:14 06/12/24 08:[address] 40 Mg Tablet PO 40 mg DAILY GIGI Administration Polyethylene Glycol 17 gm 06/12/24 09:00 06/12/24 08:32 Polyethylene Glycol 3350 Pkt 17 Gm PO 17 gm DAILY GIGI Administration Trimethoprim/Sulfamethoxazole 1 tab 06/11/24 23:15 06/12/24 11:32 Sulfamethoxazole-Trimeth Ds 160-800 Mg Tablet PO 1 tab Q12H GIGI Administration Protocol PFSH Acute PFSH: Medical History Mental disability Colon cancer screening Cologuard negative 2021 Obesity (BMI 30-39.9) Vitamin D deficiency Arthritis of hand Osteoarthritis, hand Mixed hyperlipidemia Essential (primary) hypertension Environmental and seasonal allergies B12 deficiency Surgical History Hx laparoscopic cholecystectomy 01/04/24 Dr Armenta History of hysterectomy History of tonsillectomy History of tubal ligation Family History Sister Dementia Hypertension Mother Dementia Hypertension Family/Other Diabetes Brother Hypertension Father Hypertension Denies family history of Cancer Stroke Social History (Updated 06/11/24 @ 23:26 by Grant Manriquez MD) Smoking and tobacco/nicotine status: former use of tobacco/nicotine Second hand smoke exposure: No Alcohol intake: never Substance/Drug Use: never Additional social history: Patient wants full code as discussed today 06/11/2024 with patient and son Nirav. 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 Pets and animals: No Do you think of yourself as: Straight/Heterosexual Current gender identity: Female Vitals/I&O/Wt Last Vital Signs Temp 98.2 F 06/12/24 11:27 Pulse 66 06/12/24 11:27 Resp 17 06/12/24 11:27 BP 126/78 06/12/24 11:27 Pulse Ox 96 06/12/24 11:27 O2 Del Method Room Air 06/12/24 11:27 06/11/24 06/12/24 06/12/24 22:59 06:59 14:59 Intake Total 0 / 0 840 / 840 720 / 720 Balance 0 / 0 840 / 840 720 / 720 Weight last 48 hrs Weight 178 lb 2 oz Weight 178 lb 12.8 oz Weight 188 lb Physical Exam Narrative: General : Patient is well developed , no acute distress, oriented x3 Head : Normal cephalic, a-traumatic. Nose : Mucous membranes are without erythema. Lungs : Equal chest rise bilaterally, no use of accessory muscles, trachea is midline. CV : Rate and rhythm are normal. Abdomen : Soft, ND, NT, no g/r/m Extremities : No edema. Upper extremities are normal bilaterally. Back : non-tender to palpation, no CVA tenderness. Data 06/12/24 06:44 06/12/24 06:44 A&P Assessment and plan (1) Iron deficiency anemia: (2) Symptomatic anemia: Plan After a complete history, physical examination and review of all available clinical data. I have offer Diagnostic upper and lower endoscopy. I have discussed all the risks and benefits of the endoscopy. Including, the risk of perforation of the esophagus, stomach, duodenum or colon requiring surgical intervention and ostomy creation, rectal bleeding, incomplete colonoscopy in one of every 20 patients requiring repat endoscopy in 1 year, missed polyps, need for additional procedures. Patient shows understanding and wishes to proceed. Endoscopy will be booked For Wednesday. Patient will receive bowel prep tomorrow. PDMP PDMP Reviewed: Not Reviewed Coding Level of Care Code Acute Code for Chg Fwd Diagnoses Iron deficiency anemia D50.9 Symptomatic anemia D64.9
[2024-06-12 16:32] LABS: Glucose Point of Care 101 mg/dL (70-110)
[2024-06-12 20:58] LABS: Glucose Point of Care 146 mg/dL (70-110)
[2024-06-13] VITALS (9 sets, daily range): BP systolic 112–140; BP diastolic 69–80; PULSE 61–81; RESP 16–18; TEMP 36.5–37.3; O2SAT 93–99
[2024-06-13] MEDS: cefTRIAXone 1,000 mg SDV 1000 MG IVP ×2 (00:04→23:05)
[2024-06-13] MEDS: sulfamethoxazole-trimeth DS 160-800 mg Tablet 1 TAB PO ×3 (00:04→23:05)
[2024-06-13 03:52] LABS: Basophils # 0.1 10^3/uL (0.0-0.1); Basophils % 1.6 %; Eosinophils # 0.3 10^3/uL (0.0-0.8); Eosinophils % 5.7 %; Hematocrit 32.5 % (36-47); Lymphocytes # 1.1 10^3/uL (0.8-4.8); Lymphocytes % 24.8 %; Mean Corpuscular HGB Conc 27.1 g/dL (30-55); Mean Corpuscular Hemoglobin 18.5 pg (27-33); Mean Corpuscular Volume 68.3 fl (85-98); Mean Platelet Volume 9.8 fL (7.4-10.4); Monocytes # 0.7 10^3/uL (0.2-0.9); Monocytes % 14.8 %; Neutrophils # 2.33 10^3/uL (1.8-7.7); Neutrophils % 52.9 %; Nucleated Red Blood Cells % 0.5 %; Platelet Count 248 10^3/cmm (157-399); Red Blood Count 4.76 10^6/uL (3.85-5.65); Red Cell Distribution Width 25.7 % (12.1-15.1)
[2024-06-13 04:21] LABS: Anion Gap 15.8 (5-19); Blood Urea Nitrogen 16 mg/dL (8-23); Calcium 9.4 mg/dL (8.5-10.5); Carbon Dioxide 28 mmol/L (22-29); Chloride 100 mmol/L (98-107); Creatinine Clr Calc Pharmacy 50.7537; Glucose 91 mg/dL (65-115); Magnesium 1.9 mg/dL (1.7-2.3); Osmolality Calculated 291 mOsm/kg (285-295); Potassium 3.8 mmol/L (3.5-5.1); Sodium 140 mmol/L (136-145)
[2024-06-13] MEDS: hydroCHLOROthiazide 25 mg Tablet 12.5 MG PO (05:42)
[2024-06-13] MEDS: levothyroxine 25 mcg Tablet PO (05:42)
[2024-06-13 06:24] LABS: Glucose Point of Care 102 mg/dL (70-110)
[2024-06-13] MEDS: metformin XR 500 MG Tablet 1000 MG PO (08:46)
[2024-06-13] MEDS: polyethylene glycol 3350 Pkt 17 gm PO (08:47)
[2024-06-13] MEDS: pantoprazole DR 40 mg Tablet PO (08:47)
[2024-06-13] MEDS: diclofenac 1% Topical Gel 100 gm 1 APPLIC TOPICAL ×4 (08:47→21:37)
[2024-06-13] MEDS: atenolol 50 mg Tablet 100 MG PO (08:47)
--- NOTE | 2024-06-13 10:31 | PC.CHAP ---
Pastoral Care Encounter/Spiritual Assessment Type of Contact [] Declined model maker apprentice visit [] Patient/Family/Request visit [] Outpatient visit [] Follow-up visit [] Physician referral [] Code/Alert [x] Routine visit [] Staff referral [] Actively dying [] Patient sleeping [] Family support [] [] Out of room [] Palliative care [] [] Receiving care in room [] Pre-surgical visit [] Trauma [] Long length of stay [] ICU visit [] Other: Relational/Emotional Strength [x] Patient feels connected with others/family/visitors/staff [] Distress [] Loneliness/isolation [] Abandonment Spirituality of Patient [x] Person of Ceci [] Attends Quaker of their Ceci [x] Believes in Prayer [] Reads Bible or Samaritan materials [] There are Spiritual issues to be addressed Cap Machine Operator Interventions [x] Prayer [x] Active listening [] Non-anxious presence [x] Spiritual/emotional support [] Crisis/trauma care [] Spiritual counseling [] Bereavement support [] Provided bereavement packet [] Provided Bible/devotional materials [] Provided toy/stuffed animal, coloring book to patient or family member [] Provided Communion [] Anointing/[place] [] Salvation [x] Completed spiritual assessment [] Other: Impact on Illness or Injury [] Angry [] Fearful [] Anxious [] Often cries [] Exhaustion [] Unable to work [] Unable to attend mandaeism [] Unable to walk/stand [] Unable to read [] Unable to drive [] Unable to eat/drink [] Unable to sleep [] Unable to be with family [] Patient intubated [] Other: Summary Time spent with patient 5 min
[2024-06-13 11:20] LABS: Glucose Point of Care 102 mg/dL (70-110)
[2024-06-13 11:47] LABS: Basophils # 0.1 10^3/uL (0.0-0.1); Basophils % 1.3 %; Eosinophils # 0.1 10^3/uL (0.0-0.8); Eosinophils % 2.1 %; Hematocrit 33.3 % (36-47); Lymphocytes # 0.7 10^3/uL (0.8-4.8); Lymphocytes % 13.8 %; Mean Corpuscular HGB Conc 26.4 g/dL (30-55); Mean Corpuscular Hemoglobin 17.8 pg (27-33); Mean Corpuscular Volume 67.4 fl (85-98); Mean Platelet Volume 9.4 fL (7.4-10.4); Monocytes # 0.6 10^3/uL (0.2-0.9); Monocytes % 12.2 %; Neutrophils # 3.68 10^3/uL (1.8-7.7); Neutrophils % 70.4 %; Nucleated Red Blood Cells % 0 %; Platelet Count 255 10^3/cmm (157-399); Red Blood Count 4.94 10^6/uL (3.85-5.65); Red Cell Distribution Width 26.2 % (12.1-15.1); White Blood Count 5.23 10^3/uL (3.29-11.43)
[2024-06-13] MEDS: iron sucrose 200 MG in sodium chloride 0.9% (100 ml) 100 ML 220 MG IV (12:01)
[2024-06-13] MEDS: bisacodyl 5 mg Tablet 10 MG PO (13:58)
[2024-06-13] MEDS: magnesium citrate Btl 296 mL PO ×2 (13:59→17:49)
--- NOTE | 2024-06-13 15:25 | PM.PN ---
Subjective Subjective: Hemoglobin 8.8 and stable. Reticulocyte count 0.5 She feels well today. States she is no longer dizzy. Vitals/I&O/Wt Last Vital Signs Temp 99.1 F 06/13/24 11:37 Pulse 78 06/13/24 14:00 Resp 17 06/13/24 11:37 BP 127/76 06/13/24 11:37 Pulse Ox 99 06/13/24 11:37 O2 Del Method Room Air 06/13/24 11:37 06/13/24 06/13/24 06/13/24 06:59 14:59 22:59 Intake Total 440 / 1640 1070 / 1070 Balance 440 / 1640 1070 / 1070 Weight last 48 hrs Weight 80.824 kg Weight 80.796 kg Weight 81.102 kg Weight 85.275 kg Physical Exam Narrative: General Well-developed well-nourished overweight female in no acute cardiopulmonary distress CV regular rate and rhythm Lungs clear to auscultation bilaterally Abdomen positive bowel sounds soft nontender No edema bilateral lower extremities. Patient wearing compression stockings. Data 06/13/24 11:40 06/13/24 02:51 Micro: Microbiology 06/11/24 20:44 Urine Culture - Preliminary Urine,Clean Catch Gram Negative Rods A&P Assessment and plan (1) Severe anemia: Patient was ordered for 2 units of packed red cells in the emergency department. I have added iron studies to her pretransfusion blood. Anticipate that she will need an iron infusion. Suspected colonic blood loss and she will need an outpatient colonoscopy. I have started Protonix but I doubt this is upper GI bleed she is counseled to discontinue the aspirin 81 mg coated aspirin due to the bleeding (2) UTI (urinary tract infection): Treated with Rocephin. Follow-up for hematuria after UTI resolved. If present will need renal imaging and potentially cystoscopy (3) Constipation: Start stool softeners (4) Diabetes mellitus with hyperglycemia: Start sliding scale continue metformin renal function is fine (5) Obesity (BMI 30-39.9): Start 1500-calorie ADA diet (6) Symptomatic anemia: (7) Iron deficiency anemia: Plan 06/12/2024 ?Hemoglobin 8.2 patient is status post 2 units. MCV 66.4, RDW 25.4. Most likely patient has severe iron deficiency anemia however etiology is unknown. ? I would recommend colonoscopy and EGD for complete workup ? CT abdomen pelvis does not show any acute pathology that explain her anemia. ? No evidence of any gross bleed ? Denies hematuria, vaginal bleed, hematochezia, hemoptysis ? Check reticulocyte count, haptoglobin, LDH, peripheral smear ? Will need hematology consultation at discharge ? Continue to monitor CBC every 12 hours ? Patient did have a colonoscopy 5 or 6 years ago at an outside facility. Will attempt to get records however patient tells me that there was nothing significant on results. ? Son is present at bedside to supplement history. ? I will order IV iron IV sucrose 200 x 3 doses total. First dose today ? Consult general surgery for potential EGD colonoscopy in AM. ? Subjectively patient's fatigue and shortness of breath has improved after blood transfusion which would support a diagnosis of severe iron deficiency anemia/symptomatic anemia. 06/13/2024 Reticulocyte count 0.5. Plan for EGD colonoscopy in AM. Patient to take bowel prep today. General surgery consulted Peripheral smear pending. Patient will need hematology consultation at discharge. Hemoglobin stable Iron sucrose 200 daily ordered. PDMP PDMP Reviewed: Not Reviewed Attestations Medical Necessity Statement*: egd colonoscopy in AM Diagnoses Severe anemia D64.9 UTI (urinary tract infection) N39.0 Constipation K59.00 Type 2 diabetes mellitus with hyperglycemia, without long-term current use of insulin E11.65 Diabetes mellitus type: type 2 Diabetes mellitus terminal press operator insulin use: without terminal press operator use Obesity (BMI 30-39.9) E66.9 Symptomatic anemia D64.9 Iron deficiency anemia D50.9
[2024-06-13 16:32] LABS: Glucose Point of Care 125 mg/dL (70-110)
--- NOTE | 2024-06-13 18:26 | P.PN_ITS ---
Subjective 2 Subjective: Doing well today, no abdominal pain. Receiving bowel prep with no complaints Vitals/I&O/Wt Last Vital Signs Temp 97.7 F 06/13/24 15:59 Pulse 75 06/13/24 15:59 Resp 18 06/13/24 15:59 BP 128/80 06/13/24 15:59 Pulse Ox 98 06/13/24 15:59 O2 Del Method Room Air 06/13/24 15:59 06/13/24 06/13/24 06/13/24 06:59 14:59 22:59 Intake Total 440 / 1640 1070 / 1070 680 / 1750 Balance 440 / 1640 1070 / 1070 680 / 1750 Weight last 48 hrs Weight 178 lb 3 oz Weight 178 lb 2 oz Weight 178 lb 12.8 oz Weight 188 lb Physical Exam 2 GI: OTHER: The abdomen soft nontender nondistended Data 06/13/24 11:40 06/13/24 02:51 Micro: Microbiology 06/13/24 15:10 Occult Blood (FIT) - Final Stool Routine Collection 06/11/24 20:44 Urine Culture - Preliminary Urine,Clean Catch Gram Negative Rods A&P Assessment and plan (1) Severe anemia: Plan Patient is doing very well tolerating bowel prep. Plan is for endoscopy tomorrow PDMP PDMP Reviewed: Not Reviewed Attestations 2 Medical Necessity Statement*: Per medical team Coding Level of Care Code Acute Code for Chg Fwd Diagnoses Severe anemia D64.9
[2024-06-13 21:06] LABS: Glucose Point of Care 126 mg/dL (70-110)
[2024-06-13] MEDS: atorvastatin 40 mg Tablet 20 MG PO (21:37)
[2024-06-14] VITALS (8 sets, daily range): BP systolic 106–142; BP diastolic 56–76; PULSE 66–86; RESP 15–22; TEMP 36.1–37; O2SAT 93–100
[2024-06-14 05:29] LABS: Basophils # 0.1 10^3/uL (0.0-0.1); Basophils % 1.1 %; Eosinophils # 0.1 10^3/uL (0.0-0.8); Eosinophils % 2.8 %; Lymphocytes % 21.1 %; Mean Corpuscular HGB Conc 26.6 g/dL (30-55); Mean Corpuscular Volume 67.7 fl (85-98); Mean Platelet Volume 9.9 fL (7.4-10.4); Monocytes # 0.7 10^3/uL (0.2-0.9); Monocytes % 14.1 %; Neutrophils # 2.79 10^3/uL (1.8-7.7); Neutrophils % 60.7 %; Nucleated Red Blood Cells % 0 %; Platelet Count 270 10^3/cmm (157-399); Red Blood Count 5.17 10^6/uL (3.85-5.65); Red Cell Distribution Width 27.1 % (12.1-15.1)
--- NOTE | 2024-06-14 05:40 | W.PM.OPSUD ---
Surgery/Procedure H&P Update DATE OF PROCEDURE: June 14, 2024 DATE H&P PERFORMED: 06/12/24 H&P UPDATE INFORMATION: I have reviewed H&P completed within last 30 days, I have examined patient prior to procedure, No changes to prior documentation, H&P is in [facility] EMR on date indicated and Risks and benefits of the procedure reviewed PLANNED PROCEDURE: Operation Date: 06/14/24 07:00 Proposed Procedures p EGD(Not Applicable) - Neftali Beltrán MD s Colonoscopy(Not Applicable) - Neftali Beltrán MD
[2024-06-14] MEDS: hydroCHLOROthiazide 25 mg Tablet 12.5 MG PO (05:50)
[2024-06-14] MEDS: levothyroxine 25 mcg Tablet PO (05:51)
[2024-06-14 05:54] LABS: Anion Gap 16.6 (5-19); Blood Urea Nitrogen 13 mg/dL (8-23); Calcium 9.8 mg/dL (8.5-10.5); Carbon Dioxide 26 mmol/L (22-29); Chloride 98 mmol/L (98-107); Creatinine Clr Calc Pharmacy 50.7624; Glucose 79 mg/dL (65-115); Osmolality Calculated 283 mOsm/kg (285-295); Potassium 3.6 mmol/L (3.5-5.1); Sodium 137 mmol/L (136-145)
--- NOTE | 2024-06-14 06:52 | ANES.PREANE2 ---
Pre-Anesthetic Assessment Height/Weight: Height 1.63 m Weight 80.824 kg Temp Pulse Resp BP Pulse Ox O2 Del Method 97.4 F L 86 18 142/73 98 Room Air 06/14/24 06:32 06/14/24 06:32 06/14/24 06:32 06/14/24 06:32 06/14/24 06:32 06/14/24 06:32 Preop Diagnosis: Anemia Operation Date: 06/14/24 07:00 Proposed Procedures p EGD(Not Applicable) - Neftali Beltrán MD s Colonoscopy(Not Applicable) - Neftali Beltrán MD Was Beta Floyd taken within 24 hours: Yes Last intake: Intake Last Liquid Date 06/13/24 Last Liquid Time 00:00 Social No alcohol and No tobacco Exam alert, oriented x 3, clear to auscultation bilaterally and regular rate & rhythm Airway Submandibular: within normal limits Cervical ROM: within normal limits Mallampati: Class II Dentition: full History/ROS No significant history except as noted and No significant complaints Pulmonary None reported CV/HEM Anemia and Hypertension None reported Hepatic None reported GI None reported Metabolic Diabetes Mellitus [facility] None reported Neuropsych Learning disability Anesthetic Plan ASA status: 3 Anesthesia: Anesthesia Evaluation and MAC Risk of > 500 ml blood loss (7ml/kg in children): No Medications/Allergies Home Medications ?Medication ?Instructions ?Recorded ?Confirmed ?Last Taken ?Type aspirin 81 mg tablet,delayed 81 mg PO DAILY 04/09/20 06/12/24 06/11/24 History release (Adult Aspirin Regimen) cholecalciferol (vitamin D3) 50 50 mcg PO DAILY 08/25/21 06/12/24 06/11/24 History mcg (2,000 unit) capsule T4528 T4528 Adult size pull-on xl #90 ea 09/26/21 06/12/24 Unknown Rx shoulder immobilizer #1 ea 09/09/23 06/12/24 Unknown Rx acarbose 50 mg tablet 50 mg PO TID #270 tabs 02/17/24 06/12/24 Unknown Rx atenolol 100 mg tablet 100 mg PO DAILY #90 tabs 02/17/24 06/12/24 06/11/24 Rx calcium 500 mg (as 1 tab PO .2 times day #180 tabs 02/17/24 06/12/24 06/11/24 Rx carbonate)-vitamin D3 15 mcg (600 unit) tablet (Os-Chirag 500 + D3) hydrochlorothiazide 12.5 mg tablet 12.5 mg PO QAM #90 tabs 02/17/24 06/12/24 06/11/24 Rx levothyroxine 25 mcg tablet 25 mcg PO DAILY #90 tabs 02/17/24 06/12/24 06/11/24 Rx (Levo-T) lisinopril 30 mg tablet 30 mg PO DAILY #90 tabs 02/17/24 06/12/24 06/11/24 Rx metformin 500 mg tablet,extended 1,000 mg (2 x 500 mg) PO DAILY 02/17/24 06/12/24 Unknown Rx release 24 hr #180 tabs rosuvastatin 10 mg tablet 10 mg PO .at bedtime #90 tabs 02/17/24 06/12/24 06/11/24 Rx verapamil 120 mg 24 hr 120 mg PO DAILY #90 caps 02/17/24 06/12/24 06/11/24 Rx capsule,extended release Allergies Allergy/AdvReac Type Severity Reaction Status Date / Time No Known Allergies Allergy Verified 02/17/24 16:03 Current Medications Generic Name Dose Route Start Last Admin Trade Name Freq PRN Reason Stop Dose Admin Atenolol 100 mg 06/12/24 09:00 06/13/24 08:47 Atenolol 50 Mg Tablet PO 100 mg On Hold: 06/14/24 06:27 DAILY GIGI Administration Comment: Order held by Process Transfer Atorvastatin Calcium 20 mg 06/11/24 23:45 06/13/24 21:37 Atorvastatin 40 Mg Tablet PO 20 mg On Hold: 06/14/24 06:27 BEDTIME GIGI Administration Comment: Order held by Process Transfer Ceftriaxone Sodium 1,000 mg 06/11/24 23:30 06/13/24 23:05 Ceftriaxone 1,000 Mg Sdv IVP 1,000 mg On Hold: 06/14/24 06:27 Q24H GIGI Administration Comment: Order held by Process Protocol Transfer Diclofenac Sodium 1 applic 06/12/24 09:00 06/13/24 21:37 Diclofenac 1% Topical Gel 100 Gm TOPICAL 1 applic On Hold: 06/14/24 06:27 QID GIGI Administration Comment: Order held by Process Transfer Hydrochlorothiazide 12.5 mg 06/12/24 06:00 06/14/24 05:50 Hydrochlorothiazide 25 Mg Tablet PO 12.5 mg On Hold: 06/14/24 06:27 QAM GIGI Administration Comment: Order held by Process Transfer Insulin Human Lispro 0 unit 06/12/24 08:00 06/13/24 21:35 Insulin Lispro 100 Unit/1 Ml SUBCUT Not Given On Hold: 06/14/24 06:27 WM&BEDTIME GIGI Comment: Order held by Process Protocol Transfer Levothyroxine Sodium 25 mcg 06/12/24 06:00 06/14/24 05:51 Levothyroxine 25 Mcg Tablet PO 25 mcg On Hold: 06/14/24 06:27 DAILY@0600 GIGI Administration Comment: Order held by Process Transfer Metformin HCl 1,000 mg 06/12/24 09:00 06/13/24 08:46 Metformin Xr 500 Mg Tablet PO 1,000 mg On Hold: 06/14/24 06:27 DAILY GIGI Administration Comment: Order held by Process Transfer Pantoprazole Sodium 40 mg 06/11/24 23:14 06/13/24 08:[address] 40 Mg Tablet PO 40 mg On Hold: 06/14/24 06:27 DAILY GIGI Administration Comment: Order held by Process Transfer Polyethylene Glycol 17 gm 06/12/24 09:00 06/13/24 08:47 Polyethylene Glycol 3350 Pkt 17 Gm PO 17 gm On Hold: 06/14/24 06:27 DAILY GIGI Administration Comment: Order held by Process Transfer Trimethoprim/Sulfamethoxazole 1 tab 06/11/24 23:15 06/13/24 23:05 Sulfamethoxazole-Trimeth Ds 160-800 Mg Tablet PO 1 tab On Hold: 06/14/24 06:27 Q12H GIGI Administration Comment: Order held by Process Protocol Transfer [facility] Anesthesia Medical History Mental disability Colon cancer screening Cologuard negative 2021 Obesity (BMI 30-39.9) Vitamin D deficiency Arthritis of hand Osteoarthritis, hand Mixed hyperlipidemia Essential (primary) hypertension Environmental and seasonal allergies B12 deficiency Surgical History Hx laparoscopic cholecystectomy 01/04/24 Dr Armenta History of hysterectomy History of tonsillectomy History of tubal ligation Family History Sister Dementia Hypertension Mother Dementia Hypertension Family/Other Diabetes Brother Hypertension Father Hypertension Denies family history of Cancer Stroke Social History (Updated 06/11/24 @ 23:26 by Grant Manriquez MD) Smoking and tobacco/nicotine status: former use of tobacco/nicotine Second hand smoke exposure: No Alcohol intake: never Substance/Drug Use: never Additional social history: Patient wants full code as discussed today 06/11/2024 with patient and son Nirav. 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 Pets and animals: No Do you think of yourself as: Straight/Heterosexual Current gender identity: Female Data Anesthesia 06/14/24 04:20 06/14/24 04:20 Short CBC 06/12/24 06/13/24 06/13/24 Range/Units 06:44 02:51 11:40 WBC 4.26 4.40 5.23 (3.29-11.43) 10^3/uL Hgb 8.20 L D 8.80 L 8.80 L (11.27-16.99) g/dL Hct 30.2 L 32.5 L 33.3 L (36-47) % MCV 66.4 L D 68.3 L 67.4 L (85-98) fl Plt Count 231 248 255 (157-399) 10^3/cmm Neut % (Auto) 62.7 52.9 70.4 % Neut # (Auto) 2.67 2.33 3.68 (1.8-7.7) 10^3/uL 06/14/24 Range/Units 04:20 WBC 4.60 (3.29-11.43) 10^3/uL Hgb 9.30 L (11.27-16.99) g/dL Hct 35.0 L (36-47) % MCV 67.7 L (85-98) fl Plt Count 270 (157-399) 10^3/cmm Neut % (Auto) 60.7 % Neut # (Auto) 2.79 (1.8-7.7) 10^3/uL BMP 06/12/24 06/13/24 06/14/24 06:44 02:51 04:20 Sodium 138 140 137 Potassium 3.6 3.8 3.6 Chloride 102 100 98 Carbon Dioxide 25 28 26 BUN 18 16 13 Creatinine 0.9 1.0 H 1.0 H Glucose 87 91 79 Calcium 9.2 9.4 9.8 Urine 06/11/24 Range/Units 20:44 Urine Color Yellow (Yellow) Urine Appearance Cloudy A (CLEAR) Urine pH 6.0 (5-7) Ur Specific [place] 1.013 (1.005-1.030) Urine Protein Negative (Negative) Urine Glucose (UA) Negative (Normal) Urine Ketones Negative (Negative) Urine Nitrate Positive A (Negative) Urine Bilirubin Negative (Negative) Ur Leukocyte Esterase 1+ A (Negative) Urine RBC 21-50 H (0-2) /hpf Urine WBC 21-50 H (0-5) /hpf Microbiology 06/13/24 15:10 Occult Blood (FIT) - Final Stool Routine Collection 06/11/24 20:44 Urine Culture - Preliminary Urine,Clean Catch Gram Negative Rods
[2024-06-14] MEDS: sodium chloride 0.9% 1,000 ML 15 ML IV (06:56)
--- NOTE | 2024-06-14 07:33 | P.PN_ITS ---
Subjective 2 Subjective: Doing well overnight. Bowel prep done without issues. Vitals/I&O/Wt Last Vital Signs Temp 97.4 F L 06/14/24 06:32 Pulse 86 06/14/24 06:32 Resp 18 06/14/24 06:32 BP 142/73 06/14/24 06:32 Pulse Ox 98 06/14/24 06:32 O2 Del Method Room Air 06/14/24 06:32 06/13/24 06/14/24 06/14/24 22:59 06:59 14:59 Intake Total 980 / 2050 450 / 2500 Balance 980 / 0 450 / 2500 Weight last 48 hrs Weight 178 lb 3 oz Physical Exam 2 GI: OTHER: Abdomen soft nontender nondistended Data 06/14/24 04:20 06/14/24 04:20 Micro: Microbiology 06/13/24 15:10 Occult Blood (FIT) - Final Stool Routine Collection 06/11/24 20:44 Urine Culture - Preliminary Urine,Clean Catch Gram Negative Rods A&P Assessment and plan (1) Severe anemia: Plan EGD and colonoscopy done today. No evidence of GI bleeding. In the upper endoscopy there was some fundic and body polyps that were removed and biopsies were taken from the antrum where mild gastritis was noted, she also has a small hiatal hernia. In the lower endoscopy there is no evidence of GI bleeding there is multiple diverticulum in the sigmoid and descending colon. At the level of the cecum 1 polyp was noted and taken out with a biopsy forceps and in the ascending colon another polyp was removed with biopsy forceps. Patient is clear from the surgical standpoint to advance diet. PDMP PDMP Reviewed: Not Reviewed Attestations 2 Medical Necessity Statement*: per medical team Coding Level of Care Code Acute Code for Chg Fwd Diagnoses Severe anemia D64.9
--- NOTE | 2024-06-14 08:19 | ANE.PACU2 ---
Inpatient post-anesthesia follow up: Airway intact: Yes Vital signs: Temperature 98.6 F Pulse Rate 68 Respiratory Rate 15 Blood Pressure 127/76 Pulse Oximetry 97 Oxygen Delivery Me thod Room Air Oxygen Flow Rate 4 Fraction of Inspir ed Oxygen Hydration adequate: Yes Nausea and vomiting: No Pain level: 1 Mental status: Baseline
--- NOTE | 2024-06-14 08:40 | PC.NURSE ---
Pt back from GI lab at this time. Son at bedside.
[2024-06-14] MEDS: diclofenac 1% Topical Gel 100 gm 1 APPLIC TOPICAL (08:50)
[2024-06-14] MEDS: polyethylene glycol 3350 Pkt 17 gm PO (08:51)
[2024-06-14] MEDS: atenolol 50 mg Tablet 100 MG PO (08:51)
[2024-06-14] MEDS: metformin XR 500 MG Tablet 1000 MG PO (08:51)
[2024-06-14] MEDS: pantoprazole DR 40 mg Tablet PO (08:51)
[2024-06-14 08:57] LABS: Glucose Point of Care 91 mg/dL (70-110)
--- NOTE | 2024-06-14 09:56 | P.DS_ITS ---
Discharge Providers Date of Admission: 06/12/24 12:02 Date of Discharge: June 14, 2024 Attending Provider at Admission: Grant Manriquez MD Attending Provider at Discharge: Eve Gallegos MD Primary Care Provider: TRUNG Pacheco Diagnoses at Discharge Discharge Diagnosis (1) Severe anemia: Status: Resolved Reason for Visit Reason for Visit: dizzy, sob, abd pain Hospital Course Hospital Course Patient was admitted to the hospital with fatigue, weakness dizziness and was diagnosed with severe iron deficiency symptomatic anemia. Workup was completed. Peripheral smear still pending. Most likely there is severe iron deficiency a nemia. Patient given IV iron during hospitalization and 2 units of blood. Hemoglobin stable and rising. Reticulocyte count low. Patient given hematology referral at discharge. CT colonoscopy completed. No acute gross pathology noted. Patient symptoms resolved and she was discharged home in stable condition. Son updated at bedside. Patient placed on Protonix and iron at time of discharge. Physical Exam Narrative: General Well-developed well-nourished overweight female in no acute ca rdiopulmonary distress CV regular rate and rhythm Lungs clear to auscultation bilaterally Abdomen positive bowel sounds soft nontender No edema bilateral lower extremities. Patient wearing compression stockings. Discharge Data Studies Completed and Pending Completed Studies During Hospitalization Category Date Time Status CT abdomen pelvis w con* [id number] Urgent Cat Scan 06/11/24 20:58 Completed Pending at discharge Category Date Time Status Pathology: Surgical [PTH] Routine Pth 06/14/24 07:38 Received Radiology Impressions Abdomen/Pelvis CT 06/11/24 20:58 IMPRESSION: 1. No acute findings in the abdomen/pelvis. 2. [id number]-qiokszmd colonic stool can be seen with constipation. 3. Mild protrusion of the small bowel loop in the right inguinal canal opening without obvious hernia. 4. Moderate hiatal hernia. 5. Indeterminate 1.6 cm left adrenal nodule. In a patient with no cancer history, consider 12 month follow-up adrenal CT. (Reference: Jeovany) REFERENCES: Jeovany QUINTANILLA et al. Management of Incidental Adrenal Masses: A White Paper of the ACR Incidental Findings Committee. J Am Edilia Radiol. 2017;14(8):9485-6167. Laboratory Results WBC 4.60 10^3/uL (3.29-11.43) 06/14/24 04:20 RBC 5.17 10^6/uL (3.85-5.65) 06/14/24 04:20 Hgb 9.30 g/dL (11.27-16.99) L 06/14/24 04:20 Hct 35.0 % (36-47) L 06/14/24 04:20 MCV 67.7 fl (85-98) L 06/14/24 04:20 MCH 18.0 pg (27-33) L 06/14/24 04:20 MCHC 26.6 g/dL (30-55) L 06/14/24 04:20 RDW 27.1 % (12.1-15.1) H 06/14/24 04:20 Plt Count 270 10^3/cmm (157-399) 06/14/24 04:20 MPV 9.9 fL (7.4-10.4) 06/14/24 04:20 Neut % (Auto) 60.7 % 06/14/24 04:20 Lymph % (Auto) 21.1 % 06/14/24 04:20 [place] % (Auto) 14.1 % 06/14/24 04:20 Eos % (Auto) 2.8 % 06/14/24 04:20 Baso % (Auto) 1.1 % 06/14/24 04:20 Reticulocyte % (Auto) 0.5 % (0.5-2.0) 06/12/24 06:44 Neut # (Auto) 2.79 10^3/uL (1.8-7.7) 06/14/24 04:20 Lymph # (Auto) 1.0 10^3/uL (0.8-4.8) 06/14/24 04:20 [place] # (Auto) 0.7 10^3/uL (0.2-0.9) 06/14/24 04:20 Eos # (Auto) 0.1 10^3/uL (0.0-0.8) 06/14/24 04:20 Baso # (Auto) 0.1 10^3/uL (0.0-0.1) 06/14/24 04:20 Nucleated RBC % (auto) 0 % 06/14/24 04:20 Nucleated RBCs # 0.0 /100WBC 06/14/24 04:20 Peripher Smr Path Cons Sent for review 06/12/24 06:44 Haptoglobin 160.0 mg/L (30-200) 06/12/24 06:44 Sodium 137 mmol/L (136-145) 06/14/24 04:20 Potassium 3.6 mmol/L (3.5-5.1) 06/14/24 04:20 Chloride 98 mmol/L (98-107) 06/14/24 04:20 Carbon Dioxide 26 mmol/L (22-29) 06/14/24 04:20 Anion Gap 16.6 (5-19) 06/14/24 04:20 BUN 13 mg/dL (8-23) 06/14/24 04:20 Creatinine 1.0 mg/dL (0.5-0.9) H 06/14/24 04:20 GFR Calculation Not Reportable 06/14/24 04:20 Glucose 79 mg/dL (65-115) 06/14/24 04:20 POC Glucose 91 mg/dL (70-110) 06/14/24 08:49 Calculated Osmolality 283 mOsm/kg (285-295) L 06/14/24 04:20 Calcium 9.8 mg/dL (8.5-10.5) 06/14/24 04:20 Magnesium 1.9 mg/dL (1.7-2.3) 06/13/24 02:51 Iron 15 ug/dL (37-145) L 06/11/24 20:09 TIBC 478 mcg/dl 06/11/24 20:09 % Saturation 3.1 % (20-50) L 06/11/24 20:09 Unsat Iron Binding 463 ug/dL (112-347) H 06/11/24 20:09 Total Bilirubin 0.8 mg/dL (0.15-1.2) 06/11/24 20:09 AST 14 U/L (0-32) 06/11/24 20:09 ALT 9 U/L (0-33) 06/11/24 20:09 Alkaline Phosphatase 70 U/L (35-105) 06/11/24 20:09 Lactate Dehydrogenase 196 U/L (135-214) 06/12/24 06:44 Total Protein 6.7 g/dL (6.6-8.7) 06/11/24 20:09 Albumin 4.2 g/dL (3.5-5.2) 06/11/24 20:09 Globulin 2.5 g/dL (1.3-4.6) 06/11/24 20:09 Lipase 50 U/L (13-60) 06/11/24 20:09 TSH 2.35 uIU/mL (0.27-4.20) 06/12/24 06:44 Urine Color Yellow (Yellow) 06/11/24:44 Urine Appearance Cloudy (CLEAR) A 06/11/24: Urine pH 6.0 (5-7) 06/11/24:44 Ur Specific [place] 1.013 (1.005-1.030) 06/11/24: Urine Protein Negative (Negative) 06/11/24: Urine Glucose (UA) Negative (Normal) 06/11/24 Urine Ketones Negative (Negative) 06/11/24: Urine Blood Negative (Negative) 06/11/24: Urine Nitrate Positive (Negative) A 06/11/24: Urine Bilirubin Negative (Negative) 06/11/24: Urine Urobilinogen 1.0 mg/dL (Negative) 06/11/24:44 Ur Leukocyte Esterase 1+ (Negative) A 06/11/24:44 Urine RBC 21-50 /hpf (0-2) H 06/11/24:44 Urine WBC 21-50 /hpf (0-5) H 06/11/24 20:44 Ur Squamous Epith Cells 0-5 /hpf (0-5) 06/11/24:44 Amorphous Sediment Not Reportable 06/11/24: Urine Bacteria 4+ /hpf (NONE) H 06/11/24 20:44 Hyaline Casts 28.53 /lpf 06/11/24 20:44 Blood Type O Negative 06/11/24 20:50 Rho(D) Type Rh negative 06/11/24 20:50 Antibody Screen Negative 06/11/24 20:50 Crossmatch See Detail 06/11/24 20:50 Vitals Last Vital Signs Temp 98.6 F 06/14/24 09:02 Pulse 68 06/14/24 09:02 Resp 15 06/14/24 09:02 BP 127/76 06/14/24 09:02 Pulse Ox 97 06/14/24 09:02 O2 Del Method Room Air 06/14/24 09:02 O2 Flow Rate 4 06/14/24 07:45 Discharge Plan Discharge Patient Disposition: Home Condition: Stable Prescriptions: New pantoprazole 40 mg Tablet,Delayed Release (Dr/Ec) 40 mg PO BIDWMEAL Qty: 60 0RF ferrous sulfate 325 mg (65 mg iron) tablet,delayed release (DR/EC) 325 mg PO DAILY Qty: 30 0RF Continued (DME) [id number] Adult size pull-on xl See Rx Instructions .Route .MEDSUPPLY Qty: 90 12RF Rx Instructions: As directed (DME) shoulder immobilizer See Rx Instructions .Route .MEDSUPPLY Qty: 1 0RF Rx Instructions: As directed cholecalciferol (vitamin D3) 50 mcg (2,000 unit) capsule 50 mcg PO DAILY acarbose 50 mg tablet 50 mg PO TID Qty: 270 1RF Rx Instructions: take before food atenolol 100 mg tablet 100 mg PO DAILY Qty: 90 1RF calcium carbonate-vitamin D3 [Os-Chirag 500 + D3] 500 mg-15 mcg (600 unit) tablet 1 tab PO .2 times day Qty: 180 1RF hydrochlorothiazide 12.5 mg tablet 12.5 mg PO QAM Qty: 90 1RF levothyroxine [Levo-T] 25 mcg tablet 25 mcg PO DAILY Qty: 90 1RF metformin 500 mg tablet extended release 24 hr 1,000 mg PO DAILY Qty: 180 1RF rosuvastatin 10 mg tablet 10 mg PO .at bedtime Qty: 90 1RF Held aspirin [Adult Aspirin Regimen] 81 mg tablet,delayed release (DR/EC) 81 mg PO DAILY Hold Instructions: see pcp before resuming, recheck labs wednesdayjune 19, Discontinued lisinopril 30 mg tablet 30 mg PO DAILY Qty: 90 1RF verapamil 120 mg capsule,ext rel. pellets 24 hr 120 mg PO DAILY Qty: 90 1RF Discharge Orders: Discharge Order (Routine); Ordered 06/14/24 Ordered By: Eve Gallegos Other Ambulatory Orders: DME: Wheelchair (Order) Location: None Selected Ordered By: Eve Gallegos Complete Blood Count w/Auto (Routine) Timeframe: 20240619 Location: Determined by Patient Ordered By: Eve Gallegos Referrals: Neftali Beltrán MD [Physician, General Surgery] - 06/28/24 1:35 pm Adelaide Wiseman MD [Hospitalist, Oncology] - 7-10 days Referral Note: evaluate for MDS We have notified your physician's clinic of the need for a follow-up appointment to be scheduled. If you have not heard from them within the next 2 business days, please call them directly. Kathy Tijerina, [employer] [Primary Care Provider, [facility]] - 06/20/24 1:40 pm Referral Note: Discharge Diet: Cardiac Discharge Activity: Resume usual activity Patient Instructions: Iron Supplements (By mouth), Pantoprazole (By mouth), Anemia (GEN), GI Post Discharge Instructions w/ Anesthesia, Opioid Safety Discharge Attestations Time Spent in Discharge Care*: greater than 30 min Quality Metrics Clinical Quality Measures [ No reported AMI, CVA or VTE this stay] Coding Level of Care Code Acute Code for Chg Fwd Diagnoses Severe anemia D64.9
--- NOTE | 2024-06-14 11:09 | PC.NURSE ---
Discharge instructions provided to pt and her son. W/C has been delivered. No questions or concerns voiced at this time. Pt to private vehicle via wheelchair with all belongings.
== END 2024-06-14 11:33 | disposition home or self-care (01) | DRG 811 ==
LOC: ER 22:30 → MEDSURG 22:36
PROVIDERS: Surgery; Admitting Provider Internal Medicine; Emergency Provider Emergency Medicine; PCP Nurse Practitioner; Visit Provider Internal Medicine
PROC: 0DJ08ZZ Inspection of Upper Intestinal Tract, Via Natural or Artificial Opening Endoscopic (ICD-10-PCS; principal; 2024-06-14 07:00)
PROC: 0DJD8ZZ Inspection of Lower Intestinal Tract, Via Natural or Artificial Opening Endoscopic (ICD-10-PCS; CPT 45378; 2024-06-14 07:00)
DX: D50.9 Iron deficiency anemia, unspecified (principal); K29.71 Gastritis, unspecified, with bleeding; N39.0 Urinary tract infection, site not specified; Z90.49 Acquired absence of other specified parts of digestive tract; E66.9 Obesity, unspecified; Z68.30 Body mass index [BMI] 30.0-30.9, adult; E55.9 Vitamin D deficiency, unspecified; E78.2 Mixed hyperlipidemia; I10 Essential (primary) hypertension; E53.8 Deficiency of other specified B group vitamins; Z87.891 Personal history of nicotine dependence; K59.00 Constipation, unspecified; Z79.82 Long term (current) use of aspirin; Z79.84 Long term (current) use of oral hypoglycemic drugs; K57.30 Diverticulosis of large intestine without perforation or abscess without bleeding; D12.2 Benign neoplasm of ascending colon; D12.0 Benign neoplasm of cecum; K31.7 Polyp of stomach and duodenum; K44.9 Diaphragmatic hernia without obstruction or gangrene; E11.65 Type 2 diabetes mellitus with hyperglycemia
CPT/HCPCS: 36415; 36416; 36430; 43251; 45380; 74177; 80048; 80053; 80503; 81001; 82274; 82962; 83010; 83540; 83550; 83615; 83690; 83735; 84443; 85025; 85045; 86850; 86900; 86920; 87077; 87086; 87186; 88305; 88342; 96374; 99285; G0378; J0696; J1200; J1756; J2704; J2710; J3490; J7030; J9999; P9016; P9040

== ENCOUNTER → 2024-06-28 13:00 | Outpatient (BNVA) | payer MEDICARE, MEDICAID, SELFPAY | PROVIDERS: PCP Nurse Practitioner; Visit Provider Surgery | DX: Z09 Encounter for follow-up examination after completed treatment for conditions other than malignant neoplasm (principal) | CPT/HCPCS: 99213 ==

== ENCOUNTER 2024-07-05 07:58 | Outpatient (CLI) | payer MEDICARE, MEDICAID, SELFPAY ==
--- NOTE | 2024-07-05 08:01 | CT_ITS ---
WS: [id number] CT ABDOMEN AND PELVIS NONCONTRAST HISTORY: DISORDER OF ADRENAL GLAND TECHNIQUE: Imaging performed through the abdomen and pelvis. Coronal and sagittal reformats are submitted. All CT scans at [facility] use at least one of these dose optimization techniques: automated exposure control; mA and/or kV adjustment per patient size (includes targeted exams where dose is matched to clinical indication); or iterative reconstruction. DLP: 472.63 mGy.cm COMPARISON: 06/11/2024 Lower thorax: Lung bases are clear. Mild cardiomegaly. Large hiatal hernia. Solid appearing mass measuring 3.0 x 3.6 cm in the RIGHT breast. Liver: Normal size liver. No mass or bile duct dilatation. Gallbladder: Prior cholecystectomy. Pancreas: Normal size and attenuation. Normal pancreatic duct. No pancreatitis or mass. Spleen: Normal. Adrenal glands: Normal RIGHT adrenal gland. Mild thickening of the LEFT adrenal gland measuring 12 x 9 mm. Hounsfield units are slightly elevated. Right kidney: Normal size kidney with no mass or hydronephrosis. Left kidney: Normal size kidney with no mass or hydronephrosis. Aorta: Moderate to severe atherosclerosis abdominal aorta. No aneurysm. Atherosclerosis continues into the common iliac arteries. No free fluid, intraperitoneal air or significant lymphadenopathy. GI tract: Moderate constipation. Suspect is mild rectocele. Mild diverticular disease without acute diverticulitis. Appendix is not identified. Abdominal wall: Small ventral abdominal wall hernia. Pelvis: Well-distended urinary bladder. Small bowel loop closely associated with the RIGHT inguinal canal but there is no hernia, similar to the prior study. Prior hysterectomy. Osseous structures: Increase in lumbar lordosis. L4 anterolisthesis by [address]/CT abdomen pelvis wo con [id number] IMPRESSION: 1. Mild thickening of the LEFT adrenal gland measures 12 x 9 mm. Incomplete ev aluation of the adrenal glands. As on the prior examination from 06/11/2024, 12-m [facility] adrenal CT follow-up is recommended. This would be performed with and with out contrast with thinner cuts. 2. Diffuse constipation. 3. Large hiatal hernia. 4. Prior cholecystectomy and hysterectomy.
== END 2024-07-05 07:59 | disposition home or self-care (01) ==
LOC: RAD 07:59
PROVIDERS: PCP Nurse Practitioner; Visit Provider Nurse Practitioner
DX: E27.8 Other specified disorders of adrenal gland (principal); K59.00 Constipation, unspecified; K44.9 Diaphragmatic hernia without obstruction or gangrene; Z90.49 Acquired absence of other specified parts of digestive tract; Z90.710 Acquired absence of both cervix and uterus; I51.7 Cardiomegaly; N63.10 Unspecified lump in the right breast, unspecified quadrant; I70.0 Atherosclerosis of aorta; I70.8 Atherosclerosis of other arteries; K57.30 Diverticulosis of large intestine without perforation or abscess without bleeding; K43.9 Ventral hernia without obstruction or gangrene; R93.7 Abnormal findings on diagnostic imaging of other parts of musculoskeletal system
CPT/HCPCS: 74176

== ENCOUNTER 2024-07-27 08:16 | Oncology outpatient (recurring) (ONCR) | payer MEDICARE, MEDICAID, SELFPAY ==
--- NOTE | 2024-07-27 08:30 | MM_ITS ---
WS: [id number] BILATERAL 3D TOMOSYNTHESIS DIGITAL DIAGNOSTIC MAMMOGRAPHY WITH CAD CLINICAL INFORMATION: N63.10 - Unspecified lump in the right breast, unspecifie... HISTORY: Palpable lump RIGHT breast COMPARISON: Recent CT 07/02 and 09/02/2022 mammo TECHNIQUE: Bilateral CC, MLO, and ML views. FINDINGS: Recent CT reviewed. The breasts are composed of heterogeneous fibroglandular density, which can limit the detection of small underlying mass lesions. Punctate and lucent centered calcifications. Palpable marker upper outer RIGHT breast. Ultrasound of this area is pending. LEFT breast is unchanged. ULTRASOUND BREAST RIGHT TECHNIQUE: Ultrasound right breast focused area of concern. CLINICAL INFORMATION: N63.10 - Unspecified lump in the right breast, unspecifie... FINDINGS: Ultrasound RIGHT breast area of concern upper outer RIGHT breast. Dense underlying parenchymal tissue. No cystic or solid lesions. No suspicious findings to target for biopsy. Dense tissue corresponds to the CT findings. Recommend return to annual screening mammography. MM/MM diag RT tomosynthesis [id number] IMPRESSION: DENSITY: The breasts are heterogeneously dense, which may obscure small masses. BI-RADS: 2 - Benign FOLLOW UP: 1 Year Follow-up Recommend return to annual screening mammography.
--- NOTE | 2024-07-27 09:00 | US_ITS ---
WS: [id number] BILATERAL 3D TOMOSYNTHESIS DIGITAL DIAGNOSTIC MAMMOGRAPHY WITH CAD CLINICAL INFORMATION: N63.10 - Unspecified lump in the right breast, unspecifie... HISTORY: Palpable lump RIGHT breast COMPARISON: Recent CT 07/02 and 09/02/2022 mammo TECHNIQUE: Bilateral CC, MLO, and ML views. FINDINGS: Recent CT reviewed. The breasts are composed of heterogeneous fibroglandular density, which can limit the detection of small underlying mass lesions. Punctate and lucent centered calcifications. Palpable marker upper outer RIGHT breast. Ultrasound of this area is pending. LEFT breast is unchanged. ULTRASOUND BREAST RIGHT TECHNIQUE: Ultrasound right breast focused area of concern. CLINICAL INFORMATION: N63.10 - Unspecified lump in the right breast, unspecifie... FINDINGS: Ultrasound RIGHT breast area of concern upper outer RIGHT breast. Dense underlying parenchymal tissue. No cystic or solid lesions. No suspicious findings to target for biopsy. Dense tissue corresponds to the CT findings. Recommend return to annual screening mammography. US/US breast RT limited* [id number] IMPRESSION: DENSITY: The breasts are heterogeneously dense, which may obscure small masses. BI-RADS: 2 - Benign FOLLOW UP: 1 Year Follow-up Recommend return to annual screening mammography.
== END 2024-08-07 23:59 | disposition home or self-care (01) ==
LOC: RAD 08:17 → ONCMED 09:09
PROVIDERS: PCP Nurse Practitioner; Visit Provider Nurse Practitioner
DX: N63.10 Unspecified lump in the right breast, unspecified quadrant (principal); R92.333 Mammographic heterogeneous density, bilateral breasts; R92.1 Mammographic calcification found on diagnostic imaging of breast
CPT/HCPCS: 76642; 77061; G0279

== ENCOUNTER 2024-08-10 11:34 | Oncology outpatient (recurring) (ONCR) | payer MEDICARE, MEDICAID, SELFPAY ==
[2024-08-10 12:46] LABS: Hematocrit 36.8 % (36-47); Hemoglobin 10.80 g/dL (11.27-16.99); Mean Corpuscular HGB Conc 29.3 g/dL (30-55); Mean Corpuscular Hemoglobin 23.8 pg (27-33); Mean Corpuscular Volume 81.1 fl (85-98); Nucleated Red Blood Cells % 0 %; Platelet Count 240 10^3/cmm (157-399); Red Blood Count 4.54 10^6/uL (3.85-5.65); White Blood Count 4.64 10^3/uL (3.29-11.43)
[2024-08-10 13:05] LABS: Alanine Aminotransferase 12 U/L (0-33); Albumin Level 4.3 g/dL (3.5-5.2); Alkaline Phosphatase 85 U/L (35-105); Anion Gap 15.7 (5-19); Aspartate Amino Transferase 16 U/L (0-32); Blood Urea Nitrogen 12 mg/dL (8-23); Calcium 9.5 mg/dL (8.5-10.5); Carbon Dioxide 26 mmol/L (22-29); Chloride 103 mmol/L (98-107); Creatinine Clr Calc Pharmacy 62.7132; Ferritin 8 ng/mL (15-150); Globulin 2.9 g/dL (1.3-4.6); Glucose 95 mg/dL (65-115); Iron 23 ug/dL (37-145); Osmolality Calculated 292 mOsm/kg (285-295); Potassium 3.7 mmol/L (3.5-5.1); Sodium 141 mmol/L (136-145); Total Iron Binding Capacity 399 mcg/dl; Total Protein 7.2 g/dL (6.6-8.7); Unsaturated Iron Binding 376 ug/dL (112-347)
[2024-08-10 13:19] LABS: Vitamin B12 226 pg/mL (232-1245)
[2024-08-14 19:23] LABS: Tissue Transglutaminse AB IGA <1.0 U/mL
[2024-08-15 14:48] LABS: Endomysial IgG Antibody Screen NEGATIVE (NEGATIVE)
== END 2024-09-07 23:59 | disposition home or self-care (01) ==
PROVIDERS: Internal Medicine; PCP Nurse Practitioner; Visit Provider Nurse Practitioner
DX: N63.10 Unspecified lump in the right breast, unspecified quadrant (principal); D50.8 Other iron deficiency anemias; E11.65 Type 2 diabetes mellitus with hyperglycemia; Z87.891 Personal history of nicotine dependence; Z79.899 Other long term (current) drug therapy
CPT/HCPCS: 36415; 80053; 82607; 82728; 82746; 83010; 83540; 83550; 83615; 85025; 85045; 86364; 99204

== ENCOUNTER → 2024-08-23 15:54 | Outpatient (BNVA) | payer MEDICARE, MEDICAID, SELFPAY | PROVIDERS: PCP Nurse Practitioner; Visit Provider Nurse Practitioner | DX: E11.9 Type 2 diabetes mellitus without complications (principal); E11.65 Type 2 diabetes mellitus with hyperglycemia | CPT/HCPCS: 80053; 80061; 83036 ==

== ENCOUNTER → 2025-01-18 14:34 | Outpatient (BNVA) | payer MEDICARE, MEDICAID, SELFPAY | PROVIDERS: PCP Nurse Practitioner; Visit Provider Nurse Practitioner | DX: E55.9 Vitamin D deficiency, unspecified (principal); I10 Essential (primary) hypertension; E78.2 Mixed hyperlipidemia; E11.65 Type 2 diabetes mellitus with hyperglycemia; E03.8 Other specified hypothyroidism; R35.0 Frequency of micturition | CPT/HCPCS: 80053; 80061; 81000; 82043; 82306; 82607; 83036; 84443; 85025; 87086 ==